=== PATIENT | male | born 1985 | race Caucasian/White ===

== ENCOUNTER 2018-10-19 12:04 | Inpatient (IN) | payer MEDICAID, OTHER ==
[2018-10-19] MEDS ORDERED: Sodium Chloride 0.9% 1,000 ML IV ONE (12:44)
--- NOTE | 2018-10-19 12:49 | ED Physician Chart ---
ED Chief Complaint/HPI - Patient Information Date Seen:: 10/19/18 Time Seen:: 12:30 Chief Complaint:: dizziness, weakness, shortness of breath History of Present Illness:: Patient's had dizziness, weakness, and shortness of breath for 10 days. He's had chills but did not take his temperature. Denies sore throat, cough, vomiting, diarrhea, dysuria. He last had abdominal pain which was periumbilical 2 days ago. No recent change in stool color. Patient went to clinic this morning where anemia was diagnosed. Allergies:: Allergies Allergy/AdvReac Type Severity Reaction Status Date / Time No Known Allergies Allergy Verified 10/19/18 12:18 Vitals:: Vital Signs - 8 hr 10/19/18 12:12 Temp 100.6 F HR 129 RR 18 BP 186/108 O2 Sat % 100 Historian:: Patient Review:: Nurse's Note Reviewed ED Review of Systems - Review of Systems General/Constitutional: Chills, Weakness Skin: No skin lesions Head: No headache Eyes: No loss of vision ENT: No earache, No sore throat Neck: No neck pain Cardio Vascular: No chest pain Pulmonary: SOB GI: No nausea, No vomiting, No diarrhea, Pain G/U: No dysuria, No frequency, No hematuria Musculoskeletal: No bone or joint pain Endocrine: No polyuria Psychiatric: Prior psych history Hematopoietic: No bruising Allergic/Immuno: No urticaria Neurological: No syncope, No focal symptoms ED Past Medical History - Past Medical History Past Medical History: HTN Family History: Diabetes Melitus, HTN Social History: Non Smoker, No Alcohol, No Drug Use Surgical History: None Psychiatricy History: None Medication: None ED Physical Exam - Physical Examination General/Constitutional: Awake, Well-developed, well-nourished, No distress Head: Atraumatic Eyes: PERRL Other Eyes comments:: mild scleral icterus Skin: Nl inspection, No rash ENMT: External ears, nose nl, TM canals nl, Nasal exam nl, Lips, teeth, gums nl , Oropharynx nl, Tonsils nl Neck: No nuchal rigidity Respiratory: Nl effort/Exclusion, Clear to Auscultation, No Wheeze/Rhonchi/Rales Cardio Vascular: RRR, No murmur, gallop, rubs, NL S1 S2 GI: No tenderness/rebounding/guarding, No organomegaly, No hernia, Normal BS's, Nondistended, No mass/bruits Extremities: Normal digits & nails Neuro/Psych: No focal deficits Misc: Normal back ED Labs/Radiology/EKG Results - Lab Results Results: Laboratory Results WBC 3.2 Th/cmm (4.8-10.8) L 10/19/18 12:50 RBC 1.96 Mil/cmm (4.30-5.70) L 10/19/18 12:50 Hgb 7.5 gm/dL (12-16) L* 10/19/18 12:50 Hct 21.1 % (41.0-60) L 10/19/18 12:50 MCV 107.9 fl (80-99) H 10/19/18 12:50 MCH 38.4 pg (26.0-30.0) H 10/19/18 12:50 MCHC Differential 35.6 pg (28.0-36.0) 10/19/18 12:50 RDW 22.4 % (11.5-20.0) H 10/19/18 12:50 Plt Count 100 Th/cmm (150-400) L 10/19/18 12:50 MPV 6.9 fl 10/19/18 12:50 Neutrophils % 75.4 % (40.0-80.0) 10/19/18 12:50 Lymphocytes % 19.7 % (20.0-50.0) L 10/19/18 12:50 Monocytes % 3.7 % (2.0-10.0) 10/19/18 12:50 Eosinophils % 1.1 % (0.0-5.0) 10/19/18 12:50 Basophils % 0.1 % (0.0-2.0) 10/19/18 12:50 Sodium 134 mEq/L (136-145) L 10/19/18 12:50 Potassium 4.1 mEq/L (3.5-5.1) 10/19/18 12:50 Chloride 98 mEq/L (98-107) 10/19/18 12:50 Carbon Dioxide 28.8 mEq/L (21.0-31.0) 10/19/18 12:50 Anion Gap 11.3 (7.0-16.0) 10/19/18 12:50 BUN 12 mg/dL (7-25) 10/19/18 12:50 Creatinine 0.7 mg/dL (0.7-1.3) 10/19/18 12:50 Est GFR ( Amer) > 60.0 ml/min (>90) 10/19/18 12:50 Est GFR (Non-Af Amer) > 60.0 ml/min 10/19/18 12:50 BUN/Creatinine Ratio 17.1 10/19/18 12:50 Glucose 110 mg/dL (70-105) H 10/19/18 12:50 Whole Bld Lactic Acid 1.90 mmol/L (0.60-1.99) 10/19/18 12:50 Calcium 9.4 mg/dL (8.6-10.3) 10/19/18 12:50 Total Bilirubin 2.4 mg/dL (0.3-1.0) H 10/19/18 12:50 AST 79 U/L (13-39) H 10/19/18 12:50 ALT 50 U/L (7-52) 10/19/18 12:50 Alkaline Phosphatase 53 U/L (34-104) 10/19/18 12:50 Total Protein 7.3 gm/dL (6.0-8.3) 10/19/18 12:50 Albumin 4.6 gm/dL (4.2-5.5) 10/19/18 12:50 Globulin 2.7 gm/dL 10/19/18 12:50 Albumin/Globulin Ratio 1.7 (1.0-1.8) 10/19/18 12:50 ED Assessment - Assessment General Assessment: Etiology of the patient's pancytopenia is uncertain. I spoke to who will be the admitting physician. A stool for occult blood and a hepatitis panel will be ordered. ED Septic Shock - . Is Septic Shock (SBP<90, OR Lactate>4 mmol\L) present?: No - <6hrs of presentation: Vital Signs: Vital Signs - 8 hr 10/19/18 12:12 Temp 100.6 F HR 129 RR 18 BP 186/108 O2 Sat % 100 ED Reassessment (Disposition) - Reassessment Reassessment Condition:: Unchanged - Diagnosis Diagnosis:: Pancytopenia - Patient Disposition Admitted to:: Med/Surg Spoke to:: Brie uHrst Admitting Medical Physician:: Brie Hurst Condition at Disposition:: Stable, Unchanged
--- NOTE | 2018-10-19 13:04 | Diagnostic Imaging Report ---
Chest x-ray single view portable upright at 1253 History: Fever weakness Comparison: None The heart size is normal. No focal pulmonary parenchymal processes. No hilar or mediastinal abnormalities. Impression: No acute abnormalities
[2018-10-19 13:20] LABS: MEAN CORPUSCULAR HEMOGLOBIN 38.4 pg (26.0-30.0); MEAN CORPUSCULAR HGB CONC 35.6 pg (28.0-36.0); PLATELET COUNT 100 Th/cmm (150-400); RED BLOOD COUNT 1.96 Mil/cmm (4.30-5.70); RED CELL DISTRIBUTION WIDTH 22.4 % (11.5-20.0)
[2018-10-19 13:32] LABS: ALB/GLOB RATIO 1.7 (1.0-1.8); ALBUMIN 4.6 gm/dL (4.2-5.5); ALKALINE PHOSPHATASE 53 U/L (34-104); ANION GAP 11.3 (7.0-16.0); BILIRUBIN,TOTAL 2.4 mg/dL (0.3-1.0); BUN - UREA NITROGEN 12 mg/dL (7-25); CALCIUM SERUM 9.4 mg/dL (8.6-10.3); CARBON DIOXIDE 28.8 mEq/L (21.0-31.0); CHLORIDE 98 mEq/L (98-107); CREATININE - SERUM 0.7 mg/dL (0.7-1.3); GFR AFRICAN-AMERICAN > 60.0 ml/min (>90); GFR NON AFRICAN-AMERICAN > 60.0 ml/min; GLUCOSE 110 mg/dL (70-105); POTASSIUM SERUM 4.1 mEq/L (3.5-5.1); SGOT 79 U/L (13-39); SGPT/ALT 50 U/L (7-52); SODIUM SERUM 134 mEq/L (136-145); TOTAL PROTEIN,SERUM 7.3 gm/dL (6.0-8.3)
[2018-10-19 13:37] LABS: HEMATOCRIT 21.1 % (41.0-60); HEMOGLOBIN 7.5 gm/dL (12-16); MEAN CELL VOLUME 107.9 fl (80-99); WHITE BLOOD COUNT 3.2 Th/cmm (4.8-10.8)
[2018-10-19 13:56] LABS: INR 1.02 (0.5-1.4)
[2018-10-19 14:09] LABS: LYMPHOCYTE 18 % (20-50); MONOCYTE 4 % (2-10); NEUTROPHILS 78 % (40-80)
[2018-10-19 14:10] LABS: ANISOCYTOSIS 2+; PLATELET ESTIMATE DECREASED PLATELETS (NORMAL); POIKILOCYTOSIS 1+; POLYCHROMASIA 1+
[2018-10-19 15:35] LABS: URINE SOURCE MIDSTREAM
[2018-10-19 15:38] LABS: URINE BILIRUBIN SMALL (NEGATIVE); URINE BLOOD NEGATIVE (NEGATIVE); URINE GLUCOSE (UA) NEGATIVE (NEGATIVE); URINE KETONE NEGATIVE (NEGATIVE); URINE LEUKOCYTE ESTERASE NEGATIVE (NEGATIVE); URINE MICROSCOPIC INDICATED? YES; URINE NITRATE NEGATIVE (NEGATIVE); URINE PROTEIN TRACE mg/dL (NEGATIVE)
[2018-10-19 15:48] LABS: URINE CLARITY HAZY (CLEAR); URINE COLOR YELLOW; URINE RBC 0-2 /hpf (0-5); URINE WBC 0-2 /hpf (0-5)
[2018-10-19 15:49] LABS: URINE BACTERIA FEW /hpf (NONE SEEN); URINE EPITHELIAL CELLS NONE SEEN /lpf (FEW)
[2018-10-19] MEDS ORDERED: D5-0.45NS w/20 mEq KCL 1,000 ML IV ONE (15:57)
[2018-10-19 16:26] VITALS: BP 141/85
[2018-10-19] MEDS: D5-0.45NS w/20 mEq KCL 1,000 ML IV SCH (17:03)
--- NOTE | 2018-10-19 21:18 | History & Physical ---
ADMIT DATE: 10/19/2018 CHIEF COMPLAINT: Generalized weakness for a few days' duration. HISTORY OF PRESENT ILLNESS: The patient is a 33-year-old male with long history of hypertension, presented to the Emergency Room with generalized weakness for a few days' duration, evaluated by the ER physician. Initial workup significant for pancytopenia. The patient denies any nausea, any vomiting, upper or lower GI bleeding. No dysuria or hematuria. No fever, no chills. The patient admitted to the hospital, started on IV fluids, 2 units of blood ordered to be transfused. Dr. Glass, Hematology consulted on the case. PAST MEDICAL HISTORY: Significant for hypertension. PAST SURGICAL HISTORY: No recent surgery. ALLERGIES: None. MEDICATIONS: None. SOCIAL HISTORY: No smoking, no alcohol, no drug. FAMILY HISTORY: Noncontributory. REVIEW OF SYSTEMS: IMMUNO SYSTEM: No history of chronic immuno disorder. CARDIOVASCULAR SYSTEM: He has a history of hypertension. ENDOCRINE SYSTEM: No diabetes or thyroid problem. GASTROINTESTINAL SYSTEM: No upper or lower gastrointestinal bleed. NEUROLOGICAL SYSTEM: No seizure disorder. MUSCULOSKELETAL SYSTEM: No muscular dystrophy. HEMATOLOGIC SYSTEM: No bleeding tendency. RESPIRATORY SYSTEM: No asthma. GENITOURINARY: No dysuria or hematuria. PHYSICAL EXAMINATION: GENERAL: He is awake, alert, oriented, not in pain or distress. VITAL SIGNS: Temperature is 97.7, heart rate 110, blood pressure 141/85. HEENT: Normocephalic. Pupils reactive to light and accommodation. Sclerae clear. NECK: Supple. Negative for lymphadenopathy, JVD or bruit. CHEST: Air bilaterally normal. No rhonchi or wheezing. HEART: S1, S2 normal. No murmur or gallop rhythm. ABDOMEN: Soft, bowel sounds positive. EXTREMITIES: No edema. NEUROLOGIC: He is awake, alert, oriented. No focal muscle deficits. Cranial nerves 2-12 are intact. LABORATORY DATA: White blood 3.2, hemoglobin 7.5, hematocrit 21.1, platelets 100,000. Sodium 134, potassium 4.1, BUN 12, creatinine 0.7, glucose 110. ASSESSMENT: 1. Pancytopenia. 2. Hypertension. PLAN: The patient admitted to the hospital under Dr. Hurst's service. IV fluid, regular diet, Norvasc [address] Glass consulted on the case. CBC, CMP for tomorrow. Iron deficiency panel in a.m. The patient is a full code. JOB# [id number]
[2018-10-20 05:41] LABS: MEAN CORPUSCULAR HEMOGLOBIN 37.1 pg (26.0-30.0); MEAN CORPUSCULAR HGB CONC 34.8 pg (28.0-36.0); PLATELET COUNT 90 Th/cmm (150-400); RED BLOOD COUNT 1.82 Mil/cmm (4.30-5.70); RED CELL DISTRIBUTION WIDTH 24.4 % (11.5-20.0)
[2018-10-20 05:46] LABS: WHITE BLOOD COUNT 2.8 Th/cmm (4.8-10.8)
[2018-10-20 05:47] LABS: HEMATOCRIT 19.4 % (41.0-60); HEMOGLOBIN 6.8 gm/dL (12-16); MEAN CELL VOLUME 106.7 fl (80-99)
[2018-10-20 08:06] LABS: HEP A AB IGM Negative (Negative); HEP B CORE IGM Negative (Negative); HEP B SURFACE AG QL Negative (Negative); HEP C ANTIBODY 0.3 s/co ratio (0.0-0.9)
[2018-10-20] MEDS: D5-0.45NS w/20 mEq KCL 1,000 ML IV SCH (08:40)
[2018-10-20 09:57] LABS: BAND NEUTROPHILE 0 % (0-10); LYMPHOCYTE 17 % (20-50); MONOCYTE 3 % (2-10); NEUTROPHILS 80 % (40-80)
[2018-10-20 09:58] LABS: ANISOCYTOSIS 1+; BASOPHIL 0 % (0-3); EOSINOPHIL 0 % (0-5); PLATELET ESTIMATE DECREASED PLATELETS (NORMAL)
--- NOTE | 2018-10-20 14:09 | Internal Medicine Prog Note ---
Internal Medicine Subjective - Subjective Service Date: 10/20/18 Patient seen and examined:: with staff Patient is:: awake, verbal, in bed, talking Per staff patient has:: no adverse event, eating well, tolerating meds Internal Medicine Objective - Results Result Diagrams: 10/20/18 05:30 10/19/18 12:50 Recent Labs: Laboratory Last Values WBC 2.8 Th/cmm (4.8-10.8) L 10/20/18 05:30 RBC 1.82 Mil/cmm (4.30-5.70) L 10/20/18 05:30 Hgb 6.8 gm/dL (12-16) L* 10/20/18 05:30 Hct 19.4 % (41.0-60) L* 10/20/18 05:30 MCV 106.7 fl (80-99) H 10/20/18 05:30 MCH 37.1 pg (26.0-30.0) H 10/20/18 05:30 MCHC Differential 34.8 pg (28.0-36.0) 10/20/18 05:30 RDW 24.4 % (11.5-20.0) H 10/20/18 05:30 Plt Count 90 Th/cmm (150-400) L 10/20/18 05:30 MPV 5.8 fl 10/20/18 05:30 Add Manual Diff YES 10/20/18 05:30 Neutrophils % ENDLESS BELT FINISHER 10/19/18 12:50 Band Neutrophils % 0 % (0-10) 10/20/18 05:30 Lymphocytes % ENDLESS BELT FINISHER 10/19/18 12:50 Monocytes % ENDLESS BELT FINISHER 10/19/18 12:50 Eosinophils % ENDLESS BELT FINISHER 10/19/18 12:50 Basophils % ENDLESS BELT FINISHER 10/19/18 12:50 Neutrophils (Manual) 80 % (40-80) 10/20/18 05:30 Lymphocytes 17 % (20-50) L 10/20/18 05:30 Monocytes 3 % (2-10) 10/20/18 05:30 Eosinophils 0 % (0-5) 10/20/18 05:30 Basophils 0 % (0-3) 10/20/18 05:30 Platelet Estimate DECREASED PLATELETS (NORMAL) 10/20/18 05:30 Polychromasia 1+ 10/19/18 12:50 Poikilocytosis 1+ 10/19/18 12:50 Anisocytosis 1+ 10/20/18 05:30 Microcytosis 1+ 10/19/18 12:50 Macrocytosis 1+ 10/20/18 05:30 RBC Morph Micro Appear ABNORMAL (NORMAL) 10/19/18 12:50 PT 10.6 SECONDS (9.5-11.5) 10/19/18 12:50 INR 1.02 (0.5-1.4) 10/19/18 12:50 Sodium 134 mEq/L (136-145) L 10/19/18 12:50 Potassium 4.1 mEq/L (3.5-5.1) 10/19/18 12:50 Chloride 98 mEq/L (98-107) 10/19/18 12:50 Carbon Dioxide 28.8 mEq/L (21.0-31.0) 10/19/18 12:50 Anion Gap 11.3 (7.0-16.0) 10/19/18 12:50 BUN 12 mg/dL (7-25) 10/19/18 12:50 Creatinine 0.7 mg/dL (0.7-1.3) 10/19/18 12:50 Est GFR ( Amer) > 60.0 ml/min (>90) 10/19/18 12:50 Est GFR (Non-Af Amer) > 60.0 ml/min 10/19/18 12:50 BUN/Creatinine Ratio 17.1 10/19/18 12:50 Glucose 110 mg/dL (70-105) H 10/19/18 12:50 POC Glucose 106 MG/DL (70 - 105) H 10/19/18 16:15 Whole Bld Lactic Acid 1.90 mmol/L (0.60-1.99) 10/19/18 12:50 Calcium 9.4 mg/dL (8.6-10.3) 10/19/18 12:50 Total Bilirubin 2.4 mg/dL (0.3-1.0) H 10/19/18 12:50 AST 79 U/L (13-39) H 10/19/18 12:50 ALT 50 U/L (7-52) 10/19/18 12:50 Alkaline Phosphatase 53 U/L (34-104) 10/19/18 12:50 Total Protein 7.3 gm/dL (6.0-8.3) 10/19/18 12:50 Albumin 4.6 gm/dL (4.2-5.5) 10/19/18 12:50 Globulin 2.7 gm/dL 10/19/18 12:50 Albumin/Globulin Ratio 1.7 (1.0-1.8) 10/19/18 12:50 Urine Source MIDSTREAM 10/19/18 12:25 Urine Color YELLOW 10/19/18 12:25 Urine Clarity HAZY (CLEAR) 10/19/18 12:25 Urine pH 7.0 (4.6 - 8.0) 10/19/18 12:25 Ur Specific [place] <= 1.005 (1.005-1.030) 10/19/18 12:25 Urine Protein TRACE mg/dL (NEGATIVE) 10/19/18 12:25 Urine Glucose (UA) NEGATIVE mg/dL (NEGATIVE) 10/19/18 12:25 Urine Ketones NEGATIVE mg/dL (NEGATIVE) 10/19/18 12:25 Urine Blood NEGATIVE (NEGATIVE) 10/19/18 12:25 Urine Nitrate NEGATIVE (NEGATIVE) 10/19/18 12:25 Urine Bilirubin SMALL (NEGATIVE) H 10/19/18 12:25 Urine Urobilinogen 4.0 E.U./dL (0.2 - 1.0) H 10/19/18 12:25 Ur Leukocyte Esterase NEGATIVE (NEGATIVE) 10/19/18 12:25 Urine RBC 0-2 /hpf (0-5) H 10/19/18 12:25 Urine WBC 0-2 /hpf (0-5) 10/19/18 12:25 Ur Epithelial Cells NONE SEEN /lpf (FEW) 10/19/18 12:25 Urine Bacteria FEW /hpf (NONE SEEN) 10/19/18 12:25 Hepatitis A IgM Ab Negative (Negative) 10/19/18 12:50 Hep Bs Antigen Negative (Negative) 10/19/18 12:50 Hep B Core IgM Ab Negative (Negative) 10/19/18 12:50 Hepatitis C Antibody 0.3 s/co ratio (0.0-0.9) 10/19/18 12:50 Blood Type O POSITIVE 10/19/18 15:20 Antibody Screen NEGATIVE 10/19/18 15:20 Crossmatch See Detail 10/19/18 15:20 - Physical Exam Vitals and I&O: Vital Signs Temp 98.1 F 10/20/18 12:00 Pulse 86 10/20/18 12:00 Resp 18 10/20/18 12:00 BP 145/80 10/20/18 12:00 Pulse Ox 98 10/20/18 12:00 Intake & Output 10/19/18 10/20/18 10/20/18 18:59 06:59 18:59 Intake Total 1000 1500 Balance 1000 1500 Weight (lbs) 133.356 kg 133.356 kg Intake: Intake, IV Amount 1000 1000 D5-0.45NS w/20 mEq KCL 1, 1000 000 ml @ 125 mls/hr IV . Q8H [facility] Rx#:[id number] Oral 500 Other: # Voids 2 Weight Source Patient stated Bedscale Active Medications: Current Medications Acetaminophen (Tylenol) 650 mg PO Q4H PRN PRN Reason: Fever > 101 Stop: 12/18/18 17:45 Last Admin: 10/20/18 04:07 Dose: 650 mg Amlodipine Besylate (Norvasc) 10 mg PO DAILY [facility] Stop: 12/19/18 08:59 Last Admin: 10/20/18 08:39 Dose: 10 mg Potassium Chloride/Dextrose/Sod Cl (D5-0.45ns W/20 Meq Kcl) 1,000 mls @ 125 mls /hr IV .Q8H [facility] Stop: 12/18/18 16:23 Last Admin: 10/20/18 08:40 Dose: 125 mls/hr Ciprofloxacin (Cipro 200mg Premix Pb) 200 mg in 100 mls @ 100 mls/hr IV Q12H [facility] Stop: 12/19/18 10:29 Ondansetron HCl (Zofran) 4 mg IV Q6H PRN PRN Reason: Nausea / Vomiting Stop: 12/18/18 16:23 General: alert, obese HEENT: NC/AT, PERRLA, EOMI, anicteric sclerae, throat clear Neck: Supple, No JVD, No thyromegaly, +2 carotid pulse wo bruit, No LAD Lungs: CTAB Cardiovascular: Normal S1, Normal S2, without murmur Abdomen: soft, non-tender, non-distended Extremities: clear Neurological: no change Internal Medicine Assmt/Plan - Assessment Assessment: 1.pancytopenia. 2.htn. 3.lowgrade fever. - Plan Plan: continue on current medication and diet.the patient was seen by .DICK..
--- NOTE | 2018-10-20 16:36 | Consultation ---
DATE OF CONSULTATION: 10/20/2018 REFERRING PHYSICIAN: Brie Hurst MD REASON FOR CONSULTATION: Pancytopenia. HISTORY OF PRESENT ILLNESS: The patient is a 33-year-old male who presented to the hospital with weakness, fever and chills. He was found to have low white count, hemoglobin, and platelet count. White count on admission 3.2, hemoglobin 7.5 and platelets 100 with MCV of 107, mostly neutrophils. Bilirubin elevated at 2.4 and AST elevated with normal renal functions and coagulation profile unremarkable. Urinalysis was transfused packed cells and I was asked to evaluate. PAST MEDICAL HISTORY: Hypertension and obesity. CURRENT MEDICATIONS: Ceftriaxone, Cipro, and amlodipine. PHYSICAL EXAMINATION: GENERAL: He is awake, acutely ill looking. VITAL SIGNS: T-max 100.3, blood pressure 133/80, saturation 98% on room air. No peripheral lymphadenopathy. CHEST: Clear. ABDOMEN: Soft. SKIN: Cold and clammy. LABORATORY DATA: CBC as mentioned above. CT scan of the abdomen and pelvis preliminary report a distended gallbladder. ASSESSMENT: The constellation of pancytopenia and fever and chills and distended gallbladder, abnormal elevated bilirubin, and AST are suggestive of an infectious process and bone marrow suppression. I will obtain procalcitonin, erythrocyte sedimentation rate, B12 and folate level. A HIDA scan is in progress. It confirmed the acute cholecystitis. The patient will need surgical evaluation. The elevated MCV, etiology is unclear. I will check B12 and folate level, LDH, and indirect bilirubin in case there is a hemolysis. Thank you, Dr. Husrt for the opportunity to participate in the care of this interesting case. JOB# [id number]
[2018-10-20 16:49] LABS: BILIRUBIN,DIRECT 0.57 mg/dL (0.0-0.2)
[2018-10-20] MEDS: Ciprofloxacin 200mg Premix PB 200 MG/100 ML BAG IV SCH (16:54)
[2018-10-21] MEDS: Ciprofloxacin 200mg Premix PB 200 MG/100 ML BAG IV SCH ×3 (00:30→21:48)
--- NOTE | 2018-10-21 02:47 | Consultation ---
DATE OF CONSULTATION: 10/20/2018 INFECTIOUS DISEASE CONSULTATION REFERRING PHYSICIAN: Dr. Hurst. REASON FOR CONSULTATION: Pancytopenia, fever. HISTORY OF PRESENT ILLNESS: The patient is a 33-year-old male with no significant past medical history developed intermittent fever for last 2 days. It was associated with generalized weakness and shortness of breath. On initial evaluation, his temperature was 100.6 degrees Fahrenheit and WBC count was 3200, hemoglobin was 7.5, platelets were 100,000. Basically, the patient has pancytopenia. Repeat CBC showed hemoglobin 6.8 and hematocrit 19.4 with WBC count 2800 and platelets were 90,000. As the patient had a fever, ID consult was called for further antibiotic management. The patient received 2 units of blood transfusion. ID consult was called as he had low-grade fever. The patient is obese. BMI 44.7. ALLERGIES: NKDA. MEDICATIONS: As per medication reconciliation list. The patient was started on ciprofloxacin. PAST MEDICAL HISTORY: Includes hypertension. FAMILY HISTORY: Includes diabetes mellitus type 2 and hypertension. SOCIAL HISTORY: The patient denies any smoking, alcohol or drug use. PAST SURGICAL HISTORY: Unknown. PSYCHIATRIC HISTORY: None. TRAVEL HISTORY: None. REVIEW OF SYSTEMS: GENERAL: The patient has low-grade fever and chills intermittently for last 2 days. It was associated with generalized weakness. No deficits. SKIN: The patient has no skin lesion. HEENT: No diplopia, no photophobia, no sore throat. RESPIRATORY: No cough, no shortness of breath. CARDIOVASCULAR: No chest pain, no palpitation. GASTROINTESTINAL: No nausea, no vomiting, no diarrhea, no constipation. GENITOURINARY: No dysuria. NEUROLOGIC: No headache, no dizziness, no focal weakness. PHYSICAL EXAMINATION: VITAL SIGNS: Current vital signs shows temperature is 98.1 degrees Fahrenheit, T-max 100.3 degrees Fahrenheit, pulse 86, respirations 18, blood pressure 145/60. GENERAL: The patient is comfortable, lying in bed, obese. HEENT: Head is normocephalic, atraumatic. Eyes: Pallor is present, no icterus. PERRLA, EOMI. Oral cavity moist, pink tongue. No thrush. CHEST: Vesicular breath sounds. No crackles or wheezing. HEART: S1, S2 within normal limits. Regular rhythm. No murmur or gallop. ABDOMEN: Soft, nontender, nondistended. Bowel sounds present. EXTREMITIES: No cyanosis, no clubbing, no edema. NEUROLOGICAL: Alert, awake, oriented x 3. No focal neurologic deficits. LABORATORY DATA: Current lab shows WBC count is 2800, hemoglobin 6.8, hematocrit 19.4, platelets are 90,000, neutrophils 80%. INR 1.02. Sodium 134, potassium 4.1, chloride 98, bicarbonate is 28.8, BUN is 12, creatinine 0.7, glucose is 110. LFTs revealed bilirubin is 2.4 and AST was 79. Urinalysis showed rbcs 0-1, no epithelial cells, bacteria few. Hepatitis A, B, C panel is negative. Chest x-ray showed no acute abnormality. IMPRESSION: 1. Pancytopenia. 2. Fever. 3. Hypertension. 4. Obesity and may have sleep apnea. RECOMMENDATIONS: We will continue Cipro. Check LDH. Check anticoagulant panel. We will do an EBV titer, HIV titer and follow the blood cultures. Check HIV screen. Hematology/Oncology consultation was called. Dorian Jose. Thank you, Dr. Hurst for involving me in taking care of this patient. JOB# [id number]
[2018-10-21 06:23] LABS: HEMATOCRIT 24.1 % (41.0-60); HEMOGLOBIN 8.3 gm/dL (12-16); LYMPHOCYTE ABSOLUTE 0.6 Th/cmm (1.5-3.0); MEAN CELL VOLUME 101.1 fl (80-99); MEAN CORPUSCULAR HEMOGLOBIN 34.7 pg (26.0-30.0); MEAN CORPUSCULAR HGB CONC 34.4 pg (28.0-36.0); MONOCYTE ABSOLUTE 0.1 Th/cmm (0.3-1.0); NEUTROPHILE ABSOLUTE 1.7 Th/cmm (1.8-8.0); PLATELET COUNT 85 Th/cmm (150-400); RED BLOOD COUNT 2.38 Mil/cmm (4.30-5.70); RED CELL DISTRIBUTION WIDTH 22.7 % (11.5-20.0)
[2018-10-21 06:37] LABS: ALB/GLOB RATIO 1.7 (1.0-1.8); ALBUMIN 4.2 gm/dL (4.2-5.5); ALKALINE PHOSPHATASE 41 U/L (34-104); ANION GAP 9.8 (7.0-16.0); BILIRUBIN,TOTAL 1.4 mg/dL (0.3-1.0); BUN - UREA NITROGEN 11 mg/dL (7-25); CALCIUM SERUM 8.7 mg/dL (8.6-10.3); CARBON DIOXIDE 27.2 mEq/L (21.0-31.0); CHLORIDE 101 mEq/L (98-107); CREATININE - SERUM 0.7 mg/dL (0.7-1.3); GFR AFRICAN-AMERICAN > 60.0 ml/min (>90); GFR NON AFRICAN-AMERICAN > 60.0 ml/min; GLUCOSE 115 mg/dL (70-105); SGOT 56 U/L (13-39); SGPT/ALT 37 U/L (7-52); SODIUM SERUM 134 mEq/L (136-145); TOTAL PROTEIN,SERUM 6.7 gm/dL (6.0-8.3)
[2018-10-21 06:56] LABS: WHITE BLOOD COUNT 2.4 Th/cmm (4.8-10.8)
[2018-10-21 07:32] LABS: ANISOCYTOSIS 2+; BAND NEUTROPHILE 1 % (0-10); LYMPHOCYTE 34 % (20-50); MONOCYTE 5 % (2-10); NEUTROPHILS 60 % (40-80); PLATELET ESTIMATE DECREASED PLATELETS (NORMAL); POIKILOCYTOSIS 1+; POLYCHROMASIA 1+; TEAR DROP CELLS 1+
[2018-10-21 08:08] LABS: IRON LC 117 ug/dL (38-169); TIBC (LC) 211 ug/dL (250-450); UIBC 94 ug/dL (111-343)
--- NOTE | 2018-10-21 09:30 | Diagnostic Imaging Report ---
Exam: HIDA scan HISTORY: Distended gallbladder Findings: Utilizing 5.4 mCi of technetium 99 M Choletec examination of liver and biliary G was performed. The study demonstrates normal uptake over the right midcervical throughout the liver parenchyma with normal excretion of right midcervical and common bile duct at 20 minutes. Normal progression of radiopharmaceutical into small bowel is noted. 2 hour delayed examination failed to demonstrate gallbladder. IMPRESSION: obstruction of the cystic duct, nonvisualized gallbladder. Clinical correlation is recommended.
--- NOTE | 2018-10-21 09:32 | Diagnostic Imaging Report ---
Exam: CT examination of the abdomen pelvis. HISTORY: Pain. Total DLP equals 1039 CTDI equals 18.5 Findings: Multiple contiguous thin section of the abdomen pelvis obtained from lower thorax to the pubic symphysis without the administration of oral or intravenous contrast material, no prior studies available comparison. The study demonstrates normal aeration of lung parenchyma the bases The liver and spleen intact. The adrenal glands are normal. The kidneys demonstrate no evidence of obstructive uropathy or nephrolithiasis. The visualized pancreas is normal. The gallbladder is distended. No free fluid is noted. There is no evidence of diverticular disease of diverticulitis. The appendix is intact. Large amount of fecal content is noted in the rectum. Bony structures demonstrate no evidence for lytic or blastic changes. IMPRESSION: Distended gallbladder Large amount of fecal content in the rectum. Normal appendix. No evidence of diverticulitis.
[2018-10-21] MEDS: D5-0.45NS w/20 mEq KCL 1,000 ML IV SCH ×2 (09:34→20:05)
--- NOTE | 2018-10-21 11:20 | General Progress Note ---
Subjective - Review of Systems Service Date: 10/21/18 Subjective: awake and alert no distress denies abdominal pain, fever, chills or nausea has been tolerating regular diet Objective - Results Result Diagrams: 10/21/18 05:45 10/21/18 05:45 Recent Labs: Laboratory Last Values WBC 2.4 Th/cmm (4.8-10.8) L* 10/21/18 05:45 RBC 2.38 Mil/cmm (4.30-5.70) L 10/21/18 05:45 Hgb 8.3 gm/dL (12-16) L 10/21/18 05:45 Hct 24.1 % (41.0-60) L 10/21/18 05:45 MCV 101.1 fl (80-99) H 10/21/18 05:45 MCH 34.7 pg (26.0-30.0) H 10/21/18 05:45 MCHC Differential 34.4 pg (28.0-36.0) 10/21/18 05:45 RDW 22.7 % (11.5-20.0) H 10/21/18 05:45 Plt Count 85 Th/cmm (150-400) L 10/21/18 05:45 MPV 6.8 fl 10/21/18 05:45 Add Manual Diff YES 10/21/18 05:45 Neutrophils % [employer] 10/19/18 12:50 Band Neutrophils % 1 % (0-10) 10/21/18 05:45 Lymphocytes % [employer] 10/19/18 12:50 Monocytes % [employer] 10/19/18 12:50 Eosinophils % [employer] 10/19/18 12:50 Basophils % [employer] 10/19/18 12:50 Neutrophils (Manual) 60 % (40-80) 10/21/18 05:45 Lymphocytes 34 % (20-50) 10/21/18 05:45 Monocytes 5 % (2-10) 10/21/18 05:45 Eosinophils 0 % (0-5) 10/20/18 05:30 Basophils 0 % (0-3) 10/20/18 05:30 Platelet Estimate DECREASED PLATELETS (NORMAL) 10/21/18 05:45 Polychromasia 1+ 10/21/18 05:45 Poikilocytosis 1+ 10/21/18 05:45 Anisocytosis 2+ 10/21/18 05:45 Microcytosis 1+ 10/19/18 12:50 Macrocytosis 1+ 10/21/18 05:45 Tear Drop Cells 1+ 10/21/18 05:45 RBC Morph Micro Appear ABNORMAL (NORMAL) 10/21/18 05:45 ESR 127 mm/hr (0-20) H 10/20/18 06:00 PT 10.6 SECONDS (9.5-11.5) 10/19/18 12:50 INR 1.02 (0.5-1.4) 10/19/18 12:50 Sodium 134 mEq/L (136-145) L 10/21/18 05:45 Potassium 4.0 mEq/L (3.5-5.1) 10/21/18 05:45 Chloride 101 mEq/L (98-107) 10/21/18 05:45 Carbon Dioxide 27.2 mEq/L (21.0-31.0) 10/21/18 05:45 Anion Gap 9.8 (7.0-16.0) 10/21/18 05:45 BUN 11 mg/dL (7-25) 10/21/18 05:45 Creatinine 0.7 mg/dL (0.7-1.3) 10/21/18 05:45 Est GFR ( Amer) > 60.0 ml/min (>90) 10/21/18 05:45 Est GFR (Non-Af Amer) > 60.0 ml/min 10/21/18 05:45 BUN/Creatinine Ratio 15.7 10/21/18 05:45 Glucose 115 mg/dL (70-105) H 10/21/18 05:45 POC Glucose 106 MG/DL (70 - 105) H 10/19/18 16:15 Whole Bld Lactic Acid 1.90 mmol/L (0.60-1.99) 10/19/18 12:50 Calcium 8.7 mg/dL (8.6-10.3) 10/21/18 05:45 Iron 117 ug/dL (38-169) 10/20/18 05:30 TIBC 211 ug/dL (250-450) L 10/20/18 05:30 Iron Saturation 55 % (15-55) 10/20/18 05:30 Unsaturated IBC 94 ug/dL (111-343) L 10/20/18 05:30 Total Bilirubin 1.4 mg/dL (0.3-1.0) H 10/21/18 05:45 Direct Bilirubin 0.57 mg/dL (0.0-0.2) H 10/20/18 06:00 AST 56 U/L (13-39) H 10/21/18 05:45 ALT 37 U/L (7-52) 10/21/18 05:45 Alkaline Phosphatase 41 U/L (34-104) 10/21/18 05:45 Total Protein 6.7 gm/dL (6.0-8.3) 10/21/18 05:45 Albumin 4.2 gm/dL (4.2-5.5) 10/21/18 05:45 Globulin 2.5 gm/dL 10/21/18 05:45 Albumin/Globulin Ratio 1.7 (1.0-1.8) 10/21/18 05:45 Urine Source MIDSTREAM 10/19/18 12:25 Urine Color YELLOW 10/19/18 12:25 Urine Clarity HAZY (CLEAR) 10/19/18 12:25 Urine pH 7.0 (4.6 - 8.0) 10/19/18 12:25 Ur Specific [place] <= 1.005 (1.005-1.030) 10/19/18 12:25 Urine Protein TRACE mg/dL (NEGATIVE) 10/19/18 12:25 Urine Glucose (UA) NEGATIVE mg/dL (NEGATIVE) 10/19/18 12:25 Urine Ketones NEGATIVE mg/dL (NEGATIVE) 10/19/18 12:25 Urine Blood NEGATIVE (NEGATIVE) 10/19/18 12:25 Urine Nitrate NEGATIVE (NEGATIVE) 10/19/18 12:25 Urine Bilirubin SMALL (NEGATIVE) H 10/19/18 12:25 Urine Urobilinogen 4.0 E.U./dL (0.2 - 1.0) H 10/19/18 12:25 Ur Leukocyte Esterase NEGATIVE (NEGATIVE) 10/19/18 12:25 Urine RBC 0-2 /hpf (0-5) H 10/19/18 12:25 Urine WBC 0-2 /hpf (0-5) 10/19/18 12:25 Ur Epithelial Cells NONE SEEN /lpf (FEW) 10/19/18 12:25 Urine Bacteria FEW /hpf (NONE SEEN) 10/19/18 12:25 Stool Occult Blood NEGATIVE (NEGATIVE) 10/21/18 06:50 Hepatitis A IgM Ab Negative (Negative) 10/19/18 12:50 Hep Bs Antigen Negative (Negative) 10/19/18 12:50 Hep B Core IgM Ab Negative (Negative) 10/19/18 12:50 Hepatitis C Antibody 0.3 s/co ratio (0.0-0.9) 10/19/18 12:50 Blood Type O POSITIVE 10/19/18 15:20 Antibody Screen NEGATIVE 10/19/18 15:20 Crossmatch See Detail 10/19/18 15:20 - Physical Exam Vitals and I&O: Vital Signs Temp 99.2 F 10/21/18 08:00 Pulse 103 10/21/18 08:15 Resp 20 10/21/18 08:00 BP 137/68 10/21/18 08:15 Pulse Ox 100 10/21/18 08:00 Intake & Output 10/20/18 10/21/18 10/21/18 18:59 06:59 18:59 Intake Total 1580 1000 Balance 1580 1000 Weight (lbs) 133.356 kg 133.356 kg Intake: Intake, IV Amount 1100 100 Ciprofloxacin 200mg 100 100 Premix PB 200 mg In 100 ml @ 100 mls/hr IV Q12H [facility] Rx#:[id number] D5-0.45NS w/20 mEq KCL 1, 1000 000 ml @ 125 mls/hr IV . Q8H [facility] Rx#:[id number] Oral 480 650 Blood Product 250 Other: # Voids 4 3 # Bowel Movements 0 0 Stool Characteristics Soft Formed Green Weight Source Bedscale Bedscale Active Medications: Current Medications Acetaminophen (Tylenol) 650 mg PO Q4H PRN PRN Reason: Fever > 101 Stop: 12/18/18 17:45 Last Admin: 10/20/18 15:36 Dose: 650 mg Amlodipine Besylate (Norvasc) 10 mg PO DAILY [facility] Stop: 12/19/18 08:59 Last Admin: 10/21/18 08:15 Dose: 10 mg Potassium Chloride/Dextrose/Sod Cl (D5-0.45ns W/20 Meq Kcl) 1,000 mls @ 125 mls /hr IV .Q8H [facility] Stop: 12/18/18 16:23 Last Admin: 10/21/18 09:34 Dose: 125 mls/hr Ciprofloxacin (Cipro 200mg Premix Pb) 200 mg in 100 mls @ 100 mls/hr IV Q12H [facility] Stop: 12/19/18 10:29 Last Admin: 10/21/18 09:34 Dose: 100 mls/hr Ceftriaxone Sodium 1 gm/ (Dextrose) 50 mls @ 100 mls/hr IV Q24H [facility] Stop: 12/19/18 14:59 Last Admin: 10/20/18 15:36 Dose: 100 mls/hr Metronidazole (Flagyl) 500 mg in 100 mls @ 100 mls/hr IV Q8HR [facility] Stop: 12/20/18 12:59 Ondansetron HCl (Zofran) 4 mg IV Q6H PRN PRN Reason: Nausea / Vomiting Stop: 12/18/18 16:23 General: Alert, No acute distress HEENT: Atraumatic, PERRLA Neck: Supple, JVD, Thyromegaly Cardiovascular: Regular rate, Normal S1, Normal S2 Lungs: Clear to auscultation Abdomen: Bowel sounds, Soft, Other (non tender, negative Morales's, no rebound) Assessment/Plan - Assessment Assessment: abnormal HIDA, possible cholecystitis pancytopenia obesity - Plan Plan: add flagyl keep NPO, pending surgical eval GI consult Monitor cell counts
--- NOTE | 2018-10-21 13:20 | Consultation ---
Consult Note - Consult Note Service Date: 10/21/18 Referring Physician: Brie Hurst Consult Note: PHYSICIAN Consultation Note: Date of Admission: 10/19/18 Purpose of Consultation: Chief Complaint: History of Present Illness: Patient BRUCE KILGORE was admitted to [facility] with PANCYTOPENIA. Past Medical History: Diagnoses OTHER PANCYTOPENIA (10/19/18) ESSENTIAL (PRIMARY) HYPERTENSION (10/19/18) WEAKNESS (10/19/18) Allergies Allergy/AdvReac Type Severity Reaction Status Date / Time No Known Allergies Allergy Verified 10/19/18 12:18 Vital Signs Temp 98.2 F 10/21/18 12:00 Pulse 99 10/21/18 12:00 Resp 20 10/21/18 12:00 BP 152/83 10/21/18 12:00 Pulse Ox 98 10/21/18 12:00 Intake & Output 10/20/18 10/21/18 10/21/18 18:59 06:59 18:59 Intake Total 1580 1000 Balance 1580 1000 Weight (lbs) 294 lb 294 lb Intake: Intake, IV Amount 1100 100 Ciprofloxacin 200mg 100 100 Premix PB 200 mg In 100 ml @ 100 mls/hr IV Q12H [facility] Rx#:[id number] D5-0.45NS w/20 mEq KCL 1, 1000 000 ml @ 125 mls/hr IV . Q8H [facility] Rx#:[id number] Oral 480 650 Blood Product 250 Other: # Voids 4 3 # Bowel Movements 0 0 Stool Characteristics Soft Formed Green Weight Source Bedscale Bedscale Laboratory Results - last 24 hr 10/19/18 10/20/18 10/20/18 15:20 05:30 06:00 WBC RBC Hgb Hct MCV MCH MCHC Differential RDW Plt Count MPV Add Manual Diff Band Neutrophils % Neutrophils (Manual) Lymphocytes Monocytes Platelet Estimate Polychromasia Poikilocytosis Anisocytosis Macrocytosis Tear Drop Cells RBC Morph Micro Appear ESR 127 H Sodium Potassium Chloride Carbon Dioxide Anion Gap BUN Creatinine Est GFR ( Amer) Est GFR (Non-Af Amer) BUN/Creatinine Ratio Glucose Calcium Iron 117 TIBC 211 L Iron Saturation 55 Unsaturated IBC 94 L Total Bilirubin Direct Bilirubin AST ALT Alkaline Phosphatase Total Protein Albumin Globulin Albumin/Globulin Ratio Stool Occult Blood Blood Type O POSITIVE Antibody Screen NEGATIVE Crossmatch See Detail 10/20/18 10/21/18 10/21/18 06:00 05:45 05:45 WBC 2.4 L* RBC 2.38 L Hgb 8.3 L Hct 24.1 L MCV 101.1 H MCH 34.7 H MCHC Differential 34.4 RDW 22.7 H Plt Count 85 L MPV 6.8 Add Manual Diff YES Band Neutrophils % 1 Neutrophils (Manual) 60 Lymphocytes 34 Monocytes 5 Platelet Estimate DECREASED PLATELETS Polychromasia 1+ Poikilocytosis 1+ Anisocytosis 2+ Macrocytosis 1+ Tear Drop Cells 1+ RBC Morph Micro Appear ABNORMAL ESR Sodium 134 L Potassium 4.0 Chloride 101 Carbon Dioxide 27.2 Anion Gap 9.8 BUN 11 Creatinine 0.7 Est GFR ( Amer) > 60.0 Est GFR (Non-Af Amer) > 60.0 BUN/Creatinine Ratio 15.7 Glucose 115 H Calcium 8.7 Iron TIBC Iron Saturation Unsaturated IBC Total Bilirubin 2.0 H 1.4 H Direct Bilirubin 0.57 H AST 56 H ALT 37 Alkaline Phosphatase 41 Total Protein 6.7 Albumin 4.2 Globulin 2.5 Albumin/Globulin Ratio 1.7 Stool Occult Blood Blood Type Antibody Screen Crossmatch 10/21/18 06:50 WBC RBC Hgb Hct MCV MCH MCHC Differential RDW Plt Count MPV Add Manual Diff Band Neutrophils % Neutrophils (Manual) Lymphocytes Monocytes Platelet Estimate Polychromasia Poikilocytosis Anisocytosis Macrocytosis Tear Drop Cells RBC Morph Micro Appear ESR Sodium Potassium Chloride Carbon Dioxide Anion Gap BUN Creatinine Est GFR ( Amer) Est GFR (Non-Af Amer) BUN/Creatinine Ratio Glucose Calcium Iron TIBC Iron Saturation Unsaturated IBC Total Bilirubin Direct Bilirubin AST ALT Alkaline Phosphatase Total Protein Albumin Globulin Albumin/Globulin Ratio Stool Occult Blood NEGATIVE Blood Type Antibody Screen Crossmatch Home Medication Medication Instructions Recorded Type NK [No Home Meds] 10/19/18 History Current Medications Generic Name Dose Route Start Last Admin Trade Name Freq PRN Reason Stop Dose Admin Acetaminophen 650 mg 10/19/18 17:46 10/20/18 15:36 Tylenol PO 12/18/18 17:45 650 mg Q4H PRN Administration Fever > 101 Amlodipine Besylate 10 mg 10/20/18 09:00 10/21/18 08:15 Norvasc PO 12/19/18 08:59 10 mg DAILY [facility] Administration Potassium Chloride/Dextrose/Sod Cl 1,000 mls @ 125 mls/hr 10/19/18 16:24 09:34 D5-0.45ns W/20 Meq Kcl IV 12/18/18 16:23 125 mls/hr .Q8H [facility] Administration Ciprofloxacin 200 mg in 100 mls @ 100 mls/hr 10/20/18 10:30 10/21/18 09:34 Cipro 200mg Premix Pb IV 12/19/18 10:29 100 mls/hr Q12H [facility] Administration Ceftriaxone Sodium 1 gm/ 50 mls @ 100 mls/hr 10/20/18 15:00 10/20/18 15:36 Dextrose IV 12/19/18 14:59 100 mls/hr Q24H [facility] Administration Metronidazole 500 mg in 100 mls @ 100 mls/hr 10/21/18 13:00 Flagyl IV 12/20/18 12:59 Q8HR [facility] Ondansetron HCl 4 mg 10/19/18 16:24 Zofran IV 12/18/18 16:23 Q6H PRN Nausea / Vomiting Review of Systems: A 12 point ROS was reviewed with the pertinent positive and negatives noted in the HPI. Social History Smoking Status Never smoker Drug Use No Alcohol Use No Family Medical History Family Medical History Start: 10/19/18 15: 44 Freq: ONCE Status: Active Protocol: Document 10/19/18 15:44 LEILA (Rec: 10/19/18 16:53 LEILA [id number]) Family Medical History Father History Unknown Yes Mother History Unknown Yes Physical Exam: General: HEENT: Neck: Cardio: Respiratory: Abdominal: soft mild pain in right upper quadrant Genital/Urinary: Extremities: Neurological: Assessment: symptomativ obstructed gallbladder anemia Plan: Consider surgery only if repeat ultrasound shows gallstones and patient cleared from [facility] [id number]
[2018-10-21] MEDS: metroNIDAZOLE 500mg/NS 100mL 500 MG/100 ML BAG IV SCH ×2 (13:36→20:05)
[2018-10-21 23:04] LABS: FOLIC ACID 9.7 ng/mL (>3.0)
[2018-10-22] MEDS: D5-0.45NS w/20 mEq KCL 1,000 ML IV SCH ×2 (04:16→17:34)
[2018-10-22] MEDS: metroNIDAZOLE 500mg/NS 100mL 500 MG/100 ML BAG IV SCH ×3 (04:16→20:05)
[2018-10-22 06:44] LABS: LYMPHOCYTE ABSOLUTE 0.8 Th/cmm (1.5-3.0); MEAN CELL VOLUME 101.8 fl (80-99); MEAN CORPUSCULAR HEMOGLOBIN 35.6 pg (26.0-30.0); MONOCYTE ABSOLUTE 0.1 Th/cmm (0.3-1.0); NEUTROPHILE ABSOLUTE 1.3 Th/cmm (1.8-8.0); PLATELET COUNT 85 Th/cmm (150-400); RED BLOOD COUNT 2.35 Mil/cmm (4.30-5.70); RED CELL DISTRIBUTION WIDTH 23.2 % (11.5-20.0)
[2018-10-22 06:52] LABS: INR 1.06 (0.5-1.4)
[2018-10-22 06:57] LABS: HEMATOCRIT 23.9 % (41.0-60); WHITE BLOOD COUNT 2.2 Th/cmm (4.8-10.8)
[2018-10-22 06:58] LABS: ALB/GLOB RATIO 1.5 (1.0-1.8); ALKALINE PHOSPHATASE 39 U/L (34-104); ANION GAP 8.4 (7.0-16.0); BILIRUBIN,TOTAL 1.3 mg/dL (0.3-1.0); BUN - UREA NITROGEN 11 mg/dL (7-25); CALCIUM SERUM 8.6 mg/dL (8.6-10.3); CARBON DIOXIDE 28.6 mEq/L (21.0-31.0); CHLORIDE 101 mEq/L (98-107); CREATININE - SERUM 0.7 mg/dL (0.7-1.3); GFR AFRICAN-AMERICAN > 60.0 ml/min (>90); GFR NON AFRICAN-AMERICAN > 60.0 ml/min; GLUCOSE 105 mg/dL (70-105); HEMOGLOBIN 8.4 gm/dL (12-16); SGOT 44 U/L (13-39); SGPT/ALT 33 U/L (7-52); SODIUM SERUM 134 mEq/L (136-145); TOTAL PROTEIN,SERUM 6.6 gm/dL (6.0-8.3)
[2018-10-22 07:24] LABS: NEUTROPHILS 55 % (40-80)
[2018-10-22 07:25] LABS: ANISOCYTOSIS 2+; BAND NEUTROPHILE 1 % (0-10); LYMPHOCYTE 39 % (20-50); MONOCYTE 5 % (2-10); PLATELET ESTIMATE DECREASED PLATELETS (NORMAL); POIKILOCYTOSIS 1+; POLYCHROMASIA 1+; TEAR DROP CELLS 1+
--- NOTE | 2018-10-22 09:33 | GI Progress Note ---
Subjective - Review of Systems Service Date: 10/22/18 Events since last encounter: No events Subjective: No pain. Eating OK GI OBJECTIVE - Results Result Diagrams: 10/22/18 06:20 10/22/18 06:20 Recent Labs: Laboratory Last Values WBC 2.2 Th/cmm (4.8-10.8) L* 10/22/18 06:20 RBC 2.35 Mil/cmm (4.30-5.70) L 10/22/18 06:20 Hgb 8.4 gm/dL (12-16) L 10/22/18 06:20 Hct 23.9 % (41.0-60) L 10/22/18 06:20 MCV 101.8 fl (80-99) H 10/22/18 06:20 MCH 35.6 pg (26.0-30.0) H 10/22/18 06:20 MCHC Differential 35.0 pg (28.0-36.0) 10/22/18 06:20 RDW 23.2 % (11.5-20.0) H 10/22/18 06:20 Plt Count 85 Th/cmm (150-400) L 10/22/18 06:20 MPV 6.3 fl 10/22/18 06:20 Add Manual Diff YES 10/22/18 06:20 Neutrophils % [employer] 10/19/18 12:50 Band Neutrophils % 1 % (0-10) 10/22/18 06:20 Lymphocytes % [employer] 10/19/18 12:50 Monocytes % [employer] 10/19/18 12:50 Eosinophils % [employer] 10/19/18 12:50 Basophils % [employer] 10/19/18 12:50 Neutrophils (Manual) 55 % (40-80) 10/22/18 06:20 Lymphocytes 39 % (20-50) 10/22/18 06:20 Monocytes 5 % (2-10) 10/22/18 06:20 Eosinophils 0 % (0-5) 10/20/18 05:30 Basophils 0 % (0-3) 10/20/18 05:30 Platelet Estimate DECREASED PLATELETS (NORMAL) 10/22/18 06:20 Polychromasia 1+ 10/22/18 06:20 Poikilocytosis 1+ 10/22/18 06:20 Anisocytosis 2+ 10/22/18 06:20 Microcytosis 2+ 10/22/18 06:20 Macrocytosis 1+ 10/21/18 05:45 Tear Drop Cells 1+ 10/22/18 06:20 RBC Morph Micro Appear ABNORMAL (NORMAL) 10/22/18 06:20 ESR 127 mm/hr (0-20) H 10/20/18 06:00 PT 11.0 SECONDS (9.5-11.5) 10/22/18 06:20 INR 1.06 (0.5-1.4) 10/22/18 06:20 PTT (Actin FS) 33.6 SECONDS (26.0-38.0) 10/22/18 06:20 Sodium 134 mEq/L (136-145) L 10/22/18 06:20 Potassium 4.0 mEq/L (3.5-5.1) 10/22/18 06:20 Chloride 101 mEq/L (98-107) 10/22/18 06:20 Carbon Dioxide 28.6 mEq/L (21.0-31.0) 10/22/18 06:20 Anion Gap 8.4 (7.0-16.0) 10/22/18 06:20 BUN 11 mg/dL (7-25) 10/22/18 06:20 Creatinine 0.7 mg/dL (0.7-1.3) 10/22/18 06:20 Est GFR ( Amer) > 60.0 ml/min (>90) 10/22/18 06:20 Est GFR (Non-Af Amer) > 60.0 ml/min 10/22/18 06:20 BUN/Creatinine Ratio 15.7 10/22/18 06:20 Glucose 105 mg/dL (70-105) 10/22/18 06:20 POC Glucose 106 MG/DL (70 - 105) H 10/19/18 16:15 Whole Bld Lactic Acid 1.90 mmol/L (0.60-1.99) 10/19/18 12:50 Calcium 8.6 mg/dL (8.6-10.3) 10/22/18 06:20 Iron 117 ug/dL (38-169) 10/20/18 05:30 TIBC 211 ug/dL (250-450) L 10/20/18 05:30 Iron Saturation 55 % (15-55) 10/20/18 05:30 Unsaturated IBC 94 ug/dL (111-343) L 10/20/18 05:30 Total Bilirubin 1.3 mg/dL (0.3-1.0) H 10/22/18 06:20 Direct Bilirubin 0.57 mg/dL (0.0-0.2) H 10/20/18 06:00 AST 44 U/L (13-39) H 10/22/18 06:20 ALT 33 U/L (7-52) 10/22/18 06:20 Alkaline Phosphatase 39 U/L (34-104) 10/22/18 06:20 Total Protein 6.6 gm/dL (6.0-8.3) 10/22/18 06:20 Albumin 4.0 gm/dL (4.2-5.5) L 10/22/18 06:20 Globulin 2.6 gm/dL 10/22/18 06:20 Albumin/Globulin Ratio 1.5 (1.0-1.8) 10/22/18 06:20 Vitamin B12 150 pg/mL (232-1245) L 10/20/18 06:00 Folic Acid 9.7 ng/mL (>3.0) 10/20/18 06:00 Urine Source MIDSTREAM 10/19/18 12:25 Urine Color YELLOW 10/19/18 12:25 Urine Clarity HAZY (CLEAR) 10/19/18 12:25 Urine pH 7.0 (4.6 - 8.0) 10/19/18 12:25 Ur Specific [place] <= 1.005 (1.005-1.030) 10/19/18 12:25 Urine Protein TRACE mg/dL (NEGATIVE) 10/19/18 12:25 Urine Glucose (UA) NEGATIVE mg/dL (NEGATIVE) 10/19/18 12:25 Urine Ketones NEGATIVE mg/dL (NEGATIVE) 10/19/18 12:25 Urine Blood NEGATIVE (NEGATIVE) 10/19/18 12:25 Urine Nitrate NEGATIVE (NEGATIVE) 10/19/18 12:25 Urine Bilirubin SMALL (NEGATIVE) H 10/19/18 12:25 Urine Urobilinogen 4.0 E.U./dL (0.2 - 1.0) H 10/19/18 12:25 Ur Leukocyte Esterase NEGATIVE (NEGATIVE) 10/19/18 12:25 Urine RBC 0-2 /hpf (0-5) H 10/19/18 12:25 Urine WBC 0-2 /hpf (0-5) 10/19/18 12:25 Ur Epithelial Cells NONE SEEN /lpf (FEW) 10/19/18 12:25 Urine Bacteria FEW /hpf (NONE SEEN) 10/19/18 12:25 Stool Occult Blood NEGATIVE (NEGATIVE) 10/21/18 06:50 Hepatitis A IgM Ab Negative (Negative) 10/19/18 12:50 Hep Bs Antigen Negative (Negative) 10/19/18 12:50 Hep B Core IgM Ab Negative (Negative) 10/19/18 12:50 Hepatitis C Antibody 0.3 s/co ratio (0.0-0.9) 10/19/18 12:50 Blood Type O POSITIVE 10/19/18 15:20 Antibody Screen NEGATIVE 10/19/18 15:20 Crossmatch See Detail 10/19/18 15:20 - Physical Exam Vitals and I&O: Vital Signs Temp 98.2 F 10/22/18 08:00 Pulse 92 10/22/18 08:06 Resp 18 10/22/18 08:00 BP 125/82 10/22/18 08:06 Pulse Ox 98 10/22/18 08:00 Intake & Output 10/21/18 10/22/18 10/22/18 18:59 06:59 18:59 Intake Total 1700 1780 Output Total 1300 Balance 1700 480 Weight (lbs) 133.356 kg 133.356 kg Intake: Intake, IV Amount 1200 1300 Ciprofloxacin 200mg 100 100 Premix PB 200 mg In 100 ml @ 100 mls/hr IV Q12H [facility] Rx#:[id number] D5-0.45NS w/20 mEq KCL 1, 1000 1000 000 ml @ 125 mls/hr IV . Q8H [facility] Rx#:[id number] metroNIDAZOLE 500mg/NS 100 200 100mL 500 mg In 100 ml @ 100 mls/hr IV Q8HR [facility] Rx #:[id number] Oral 500 480 Output: Urine 1300 Other: # Voids 4 # Bowel Movements 1 0 Stool Characteristics Soft Formed Green Weight Source Bedscale Bedscale Active Medications: Current Medications Acetaminophen (Tylenol) 650 mg PO Q4H PRN PRN Reason: Fever > 101 Stop: 12/18/18 17:45 Last Admin: 10/20/18 15:36 Dose: 650 mg Amlodipine Besylate (Norvasc) 10 mg PO DAILY [facility] Stop: 12/19/18 08:59 Last Admin: 10/22/18 08:06 Dose: 10 mg Potassium Chloride/Dextrose/Sod Cl (D5-0.45ns W/20 Meq Kcl) 1,000 mls @ 125 mls /hr IV .Q8H [facility] Stop: 12/18/18 16:23 Last Admin: 10/22/18 04:16 Dose: 125 mls/hr Ciprofloxacin (Cipro 200mg Premix Pb) 200 mg in 100 mls @ 100 mls/hr IV Q12H [facility] Stop: 12/19/18 10:29 Last Infusion: 10/21/18 22:48 Dose: Infused Ceftriaxone Sodium 1 gm/ (Dextrose) 50 mls @ 100 mls/hr IV Q24H [facility] Stop: 12/19/18 14:59 Last Admin: 10/21/18 15:07 Dose: 100 mls/hr Metronidazole (Flagyl) 500 mg in 100 mls @ 100 mls/hr IV Q8HR [facility] Stop: 12/20/18 12:59 Last Infusion: 10/22/18 05:16 Dose: Infused Ondansetron HCl (Zofran) 4 mg IV Q6H PRN PRN Reason: Nausea / Vomiting Stop: 12/18/18 16:23 General: Alert, Oriented x3, Cooperative, No acute distress Cardiovascular: Regular rate, Normal S1, Normal S2 Lungs: Clear to auscultation Abdomen: Bowel sounds, Soft, no Tender, no Mass, no Guarding Assessment/Plan - Assessment Assessment: 1. Pancytopenia 2. Anemia 3. Cholecystitis - Plan Plan: 1. Pancytopenia. W/U in progress Possibly due to sepsis 2. Anemia. Most likely secondary to BM suppression. Megaloblastic. B12 and Folate are pending No GI bleeding. 3. Cholecystitis. Calculous Vs a alculous. US is Pending. Await results. HIDA is positive.
[2018-10-22] MEDS: Ciprofloxacin 200mg Premix PB 200 MG/100 ML BAG IV SCH ×2 (10:23→21:42)
--- NOTE | 2018-10-22 10:32 | Diagnostic Imaging Report ---
Exam: Ultrasound examination of the abdomen. HISTORY: Gallbladder disease Findings: Real-time ultrasound examination the abdomen performed planes. The study demonstrates mild fatty infiltration of liver parenchyma. There is evidence for cholelithiasis. No pericholecystic fluid collections present. Common bile duct measures 2.2 mm. Pancreas poorly seen. There is no evidence of obstructive uropathy or nephrolithiasis. Right kidney measures 12.1 x 6.7 x 6.5 cm. Left kidney measures 10.2 x 5.8 x 5.7 cm. The spleen is enlarged up to 15 cm in span. No free fluid is noted. Study is limited due to patient body habitus. IMPRESSION: Cholelithiasis. Gallbladder calculus 1.3 cm diameter in the most dependent portion of gallbladder. Splenomegaly. Limited study due to patient body habitus
--- NOTE | 2018-10-22 15:16 | General Progress Note ---
Subjective - Review of Systems Service Date: 10/22/18 Subjective: awake and alert no distress denies abdominal pain, fever, chills or nausea has been tolerating regular diet family members at bedside Objective - Results Result Diagrams: 10/22/18 06:20 10/22/18 06:20 Recent Labs: Laboratory Last Values WBC 2.2 Th/cmm (4.8-10.8) L* 10/22/18 06:20 RBC 2.35 Mil/cmm (4.30-5.70) L 10/22/18 06:20 Hgb 8.4 gm/dL (12-16) L 10/22/18 06:20 Hct 23.9 % (41.0-60) L 10/22/18 06:20 MCV 101.8 fl (80-99) H 10/22/18 06:20 MCH 35.6 pg (26.0-30.0) H 10/22/18 06:20 MCHC Differential 35.0 pg (28.0-36.0) 10/22/18 06:20 RDW 23.2 % (11.5-20.0) H 10/22/18 06:20 Plt Count 85 Th/cmm (150-400) L 10/22/18 06:20 MPV 6.3 fl 10/22/18 06:20 Add Manual Diff YES 10/22/18 06:20 Neutrophils % COURT COMMISSIONER 10/19/18 12:50 Band Neutrophils % 1 % (0-10) 10/22/18 06:20 Lymphocytes % COURT COMMISSIONER 10/19/18 12:50 Monocytes % COURT COMMISSIONER 10/19/18 12:50 Eosinophils % COURT COMMISSIONER 10/19/18 12:50 Basophils % COURT COMMISSIONER 10/19/18 12:50 Neutrophils (Manual) 55 % (40-80) 10/22/18 06:20 Lymphocytes 39 % (20-50) 10/22/18 06:20 Monocytes 5 % (2-10) 10/22/18 06:20 Eosinophils 0 % (0-5) 10/20/18 05:30 Basophils 0 % (0-3) 10/20/18 05:30 Platelet Estimate DECREASED PLATELETS (NORMAL) 10/22/18 06:20 Polychromasia 1+ 10/22/18 06:20 Poikilocytosis 1+ 10/22/18 06:20 Anisocytosis 2+ 10/22/18 06:20 Microcytosis 2+ 10/22/18 06:20 Macrocytosis 1+ 10/21/18 05:45 Tear Drop Cells 1+ 10/22/18 06:20 RBC Morph Micro Appear ABNORMAL (NORMAL) 10/22/18 06:20 ESR 127 mm/hr (0-20) H 10/20/18 06:00 PT 11.0 SECONDS (9.5-11.5) 10/22/18 06:20 INR 1.06 (0.5-1.4) 10/22/18 06:20 PTT (Actin FS) 33.6 SECONDS (26.0-38.0) 10/22/18 06:20 Sodium 134 mEq/L (136-145) L 10/22/18 06:20 Potassium 4.0 mEq/L (3.5-5.1) 10/22/18 06:20 Chloride 101 mEq/L (98-107) 10/22/18 06:20 Carbon Dioxide 28.6 mEq/L (21.0-31.0) 10/22/18 06:20 Anion Gap 8.4 (7.0-16.0) 10/22/18 06:20 BUN 11 mg/dL (7-25) 10/22/18 06:20 Creatinine 0.7 mg/dL (0.7-1.3) 10/22/18 06:20 Est GFR ( Amer) > 60.0 ml/min (>90) 10/22/18 06:20 Est GFR (Non-Af Amer) > 60.0 ml/min 10/22/18 06:20 BUN/Creatinine Ratio 15.7 10/22/18 06:20 Glucose 105 mg/dL (70-105) 10/22/18 06:20 POC Glucose 106 MG/DL (70 - 105) H 10/19/18 16:15 Whole Bld Lactic Acid 1.90 mmol/L (0.60-1.99) 10/19/18 12:50 Calcium 8.6 mg/dL (8.6-10.3) 10/22/18 06:20 Iron 117 ug/dL (38-169) 10/20/18 05:30 TIBC 211 ug/dL (250-450) L 10/20/18 05:30 Iron Saturation 55 % (15-55) 10/20/18 05:30 Unsaturated IBC 94 ug/dL (111-343) L 10/20/18 05:30 Total Bilirubin 1.3 mg/dL (0.3-1.0) H 10/22/18 06:20 Direct Bilirubin 0.57 mg/dL (0.0-0.2) H 10/20/18 06:00 AST 44 U/L (13-39) H 10/22/18 06:20 ALT 33 U/L (7-52) 10/22/18 06:20 Alkaline Phosphatase 39 U/L (34-104) 10/22/18 06:20 Total Protein 6.6 gm/dL (6.0-8.3) 10/22/18 06:20 Albumin 4.0 gm/dL (4.2-5.5) L 10/22/18 06:20 Globulin 2.6 gm/dL 10/22/18 06:20 Albumin/Globulin Ratio 1.5 (1.0-1.8) 10/22/18 06:20 Vitamin B12 150 pg/mL (232-1245) L 10/20/18 06:00 Folic Acid 9.7 ng/mL (>3.0) 10/20/18 06:00 Urine Source MIDSTREAM 10/19/18 12:25 Urine Color YELLOW 10/19/18 12:25 Urine Clarity HAZY (CLEAR) 10/19/18 12:25 Urine pH 7.0 (4.6 - 8.0) 10/19/18 12:25 Ur Specific [place] <= 1.005 (1.005-1.030) 10/19/18 12:25 Urine Protein TRACE mg/dL (NEGATIVE) 10/19/18 12:25 Urine Glucose (UA) NEGATIVE mg/dL (NEGATIVE) 10/19/18 12:25 Urine Ketones NEGATIVE mg/dL (NEGATIVE) 10/19/18 12:25 Urine Blood NEGATIVE (NEGATIVE) 10/19/18 12:25 Urine Nitrate NEGATIVE (NEGATIVE) 10/19/18 12:25 Urine Bilirubin SMALL (NEGATIVE) H 10/19/18 12:25 Urine Urobilinogen 4.0 E.U./dL (0.2 - 1.0) H 10/19/18 12:25 Ur Leukocyte Esterase NEGATIVE (NEGATIVE) 10/19/18 12:25 Urine RBC 0-2 /hpf (0-5) H 10/19/18 12:25 Urine WBC 0-2 /hpf (0-5) 10/19/18 12:25 Ur Epithelial Cells NONE SEEN /lpf (FEW) 10/19/18 12:25 Urine Bacteria FEW /hpf (NONE SEEN) 10/19/18 12:25 Stool Occult Blood NEGATIVE (NEGATIVE) 10/21/18 06:50 Hepatitis A IgM Ab Negative (Negative) 10/19/18 12:50 Hep Bs Antigen Negative (Negative) 10/19/18 12:50 Hep B Core IgM Ab Negative (Negative) 10/19/18 12:50 Hepatitis C Antibody 0.3 s/co ratio (0.0-0.9) 10/19/18 12:50 Blood Type O POSITIVE 10/19/18 15:20 Antibody Screen NEGATIVE 10/19/18 15:20 Crossmatch See Detail 10/19/18 15:20 - Physical Exam Vitals and I&O: Vital Signs Temp 97.1 F 10/22/18 11:47 Pulse 93 10/22/18 11:47 Resp 18 10/22/18 11:47 BP 118/73 10/22/18 11:47 Pulse Ox 98 10/22/18 11:47 Intake & Output 10/21/18 10/22/18 10/22/18 18:59 06:59 18:59 Intake Total 1750 1780 Output Total 1300 Balance 1750 480 Weight (lbs) 133.356 kg 133.356 kg Intake: Intake, IV Amount 1250 1300 Ciprofloxacin 200mg 100 100 Premix PB 200 mg In 100 ml @ 100 mls/hr IV Q12H [facility] Rx#:[id number] D5-0.45NS w/20 mEq KCL 1, 1000 1000 000 ml @ 125 mls/hr IV . Q8H [facility] Rx#:[id number] cefTRIAXone 1 gm In 50 Dextrose 5% 50 ml @ 100 mls/hr IV Q24H [facility] Rx#: [id number] metroNIDAZOLE 500mg/NS 100 200 100mL 500 mg In 100 ml @ 100 mls/hr IV Q8HR [facility] Rx #:[id number] Oral 500 480 Output: Urine 1300 Other: # Voids 4 # Bowel Movements 1 0 Stool Characteristics Soft Formed Green Weight Source Bedscale Bedscale Active Medications: Current Medications Acetaminophen (Tylenol) 650 mg PO Q4H PRN PRN Reason: Fever > 101 Stop: 12/18/18 17:45 Last Admin: 10/20/18 15:36 Dose: 650 mg Amlodipine Besylate (Norvasc) 10 mg PO DAILY [facility] Stop: 12/19/18 08:59 Last Admin: 10/22/18 08:06 Dose: 10 mg Potassium Chloride/Dextrose/Sod Cl (D5-0.45ns W/20 Meq Kcl) 1,000 mls @ 125 mls /hr IV .Q8H [facility] Stop: 12/18/18 16:23 Last Admin: 10/22/18 04:16 Dose: 125 mls/hr Ciprofloxacin (Cipro 200mg Premix Pb) 200 mg in 100 mls @ 100 mls/hr IV Q12H [facility] Stop: 12/19/18 10:29 Last Admin: 10/22/18 10:23 Dose: 100 mls/hr Ceftriaxone Sodium 1 gm/ (Dextrose) 50 mls @ 100 mls/hr IV Q24H [facility] Stop: 12/19/18 14:59 Last Admin: 10/22/18 14:36 Dose: 100 mls/hr Metronidazole (Flagyl) 500 mg in 100 mls @ 100 mls/hr IV Q8HR [facility] Stop: 12/20/18 12:59 Last Admin: 10/22/18 12:51 Dose: 100 mls/hr Ondansetron HCl (Zofran) 4 mg IV Q6H PRN PRN Reason: Nausea / Vomiting Stop: 12/18/18 16:23 General: Alert, Oriented x3, Cooperative, No acute distress HEENT: Atraumatic, PERRLA Neck: Supple, JVD, Thyromegaly Cardiovascular: Regular rate, Normal S1, Normal S2 Lungs: Clear to auscultation Abdomen: Bowel sounds, Soft, no Tender, no Mass, no Guarding Assessment/Plan - Assessment Assessment: abnormal HIDA, possible cholecystitis pancytopenia obesity - Plan Plan: continue current treatment will hematology clearance for surgery encouraged to ambulate as tolerated
--- NOTE | 2018-10-22 18:54 | Consultation ---
DATE OF CONSULTATION: 10/21/2018 REASON FOR CONSULTATION: Abdominal pain, nausea, vomiting, anemia. HISTORY OF PRESENT ILLNESS: This consult was obtained through the request of Dr. Rosenberg and Dr. Hurst for this 33-year-old with history of morbid obesity and hypertension, who presented to the hospital because of not feeling well, tired, fatigued, short of breath and could not even walk. When he came, he was found to be anemic, but he also has pancytopenic and workup included a CAT scan, which showed distended gallbladder and a HIDA scan was done, which showed acute cholecystitis. The patient denies any prior episodes like this. He had vomiting one time when he came to the hospital. He did not have any active GI bleed. He was constipated for one or two days to Tuesday, but he started having bowel movements today. PAST MEDICAL HISTORY: Hypertension and obesity. PAST SURGICAL HISTORY: Negative. MEDICATIONS: None. ALLERGIES: No known drug allergies. SOCIAL HISTORY: Nonsmoker, alcohol or drugs. FAMILY HISTORY: Negative for GI malignancy or liver disease. REVIEW OF SYSTEMS: Denies any weight loss. He had nausea and vomiting when he came in. He had constipation. PHYSICAL EXAMINATION: GENERAL: The patient is awake, oriented to self, place, and time, in no acute distress. VITAL SIGNS: Showed blood pressure is 131/68, heart rate 103, respiratory rate 18, temperature is 98.4. HEAD AND NECK: Pupils reactive to light and accommodation. Extraocular muscles intact. Sclerae are anicteric. Conjunctivae not pale. Oral cavity, no lesion. NECK: Supple. CHEST: Good air entry. LUNGS: Clear to auscultation. CARDIOVASCULAR: Showed regular rate and rhythm. No murmur or gallop. ABDOMEN: Soft, obese, nontender, nondistended. Bowel sounds are present. EXTREMITIES: Lower extremities, no edema. CENTRAL NERVOUS SYSTEM: Grossly nonfocal. LABORATORY DATA: PT is 10.6 seconds. Chemistry showed bilirubin of 2.4, now down to 1.4, AST 79, now down to 56, ALT 15, alkaline phosphatase 37, ____ normal at 41. Albumin is normal at 4.2. White count is 2.4., hemoglobin 8.3, hematocrit 24.1, MCV was 107.9 on presentation, now 101.1 and platelets of 100 now down to 85. X-rays as stated above. Sedimentation rate elevated at 127. IMPRESSION: A 33-year-old with pancytopenia and possible cholecystitis. ASSESSMENT AND PLAN: Pancytopenia. No history of medications to account for. Differential would include bone marrow suppression versus drug-induced even though the patient denies any medications. At this time, workup has been initiated by windows 7 deployment lead, Dr. Glass. We will await results. Doubt the patient will need a bone marrow biopsy, but if it does not improve, he might need to have it. 2. Anemia could be a secondary to the pancytopenia process. 3. Cholecystitis possibly the source of sepsis, but on the other hand, there is no definitive gallstones, so surgeon request ultrasound, which was done, await results. Meanwhile, continue with IV antibiotics, then further recommendations to follow. Thank you Dr. Rosenberg and Dr. Hurst for allowing me to participate in the care of your patient. If you have any further questions. [facility]# [id number]
--- NOTE | 2018-10-22 21:42 | General Progress Note ---
Subjective - Review of Systems Service Date: 10/22/18 Subjective: patient tolerating po diet well no fever no pain hematology to see patient does not seem symptomatic from gallstones despite HIDA wbc low platelets low high risk patient Objective - Results Result Diagrams: 10/22/18 06:20 10/22/18 06:20 Recent Labs: Laboratory Last Values WBC 2.2 Th/cmm (4.8-10.8) L* 10/22/18 06:20 RBC 2.35 Mil/cmm (4.30-5.70) L 10/22/18 06:20 Hgb 8.4 gm/dL (12-16) L 10/22/18 06:20 Hct 23.9 % (41.0-60) L 10/22/18 06:20 MCV 101.8 fl (80-99) H 10/22/18 06:20 MCH 35.6 pg (26.0-30.0) H 10/22/18 06:20 MCHC Differential 35.0 pg (28.0-36.0) 10/22/18 06:20 RDW 23.2 % (11.5-20.0) H 10/22/18 06:20 Plt Count 85 Th/cmm (150-400) L 10/22/18 06:20 MPV 6.3 fl 10/22/18 06:20 Add Manual Diff YES 10/22/18 06:20 Neutrophils % ELECT[employer]IC POWER MACHINE OPERATOR 10/19/18 12:50 Band Neutrophils % 1 % (0-10) 10/22/18 06:20 Lymphocytes % ELECT[employer]IC POWER MACHINE OPERATOR 10/19/18 12:50 Monocytes % ELECT[employer]IC POWER MACHINE OPERATOR 10/19/18 12:50 Eosinophils % ELECTRIC POWER MACHINE OPERATOR 10/19/18 12:50 Basophils % ELECTRIC POWER MACHINE OPERATOR 10/19/18 12:50 Neutrophils (Manual) 55 % (40-80) 10/22/18 06:20 Lymphocytes 39 % (20-50) 10/22/18 06:20 Monocytes 5 % (2-10) 10/22/18 06:20 Eosinophils 0 % (0-5) 10/20/18 05:30 Basophils 0 % (0-3) 10/20/18 05:30 Platelet Estimate DECREASED PLATELETS (NORMAL) 10/22/18 06:20 Polychromasia 1+ 10/22/18 06:20 Poikilocytosis 1+ 10/22/18 06:20 Anisocytosis 2+ 10/22/18 06:20 Microcytosis 2+ 10/22/18 06:20 Macrocytosis 1+ 10/21/18 05:45 Tear Drop Cells 1+ 10/22/18 06:20 RBC Morph Micro Appear ABNORMAL (NORMAL) 10/22/18 06:20 ESR 127 mm/hr (0-20) H 10/20/18 06:00 PT 11.0 SECONDS (9.5-11.5) 10/22/18 06:20 INR 1.06 (0.5-1.4) 10/22/18 06:20 PTT (Actin FS) 33.6 SECONDS (26.0-38.0) 10/22/18 06:20 Sodium 134 mEq/L (136-145) L 10/22/18 06:20 Potassium 4.0 mEq/L (3.5-5.1) 10/22/18 06:20 Chloride 101 mEq/L (98-107) 10/22/18 06:20 Carbon Dioxide 28.6 mEq/L (21.0-31.0) 10/22/18 06:20 Anion Gap 8.4 (7.0-16.0) 10/22/18 06:20 BUN 11 mg/dL (7-25) 10/22/18 06:20 Creatinine 0.7 mg/dL (0.7-1.3) 10/22/18 06:20 Est GFR ( Amer) > 60.0 ml/min (>90) 10/22/18 06:20 Est GFR (Non-Af Amer) > 60.0 ml/min 10/22/18 06:20 BUN/Creatinine Ratio 15.7 10/22/18 06:20 Glucose 105 mg/dL (70-105) 10/22/18 06:20 POC Glucose 106 MG/DL (70 - 105) H 10/19/18 16:15 Whole Bld Lactic Acid 1.90 mmol/L (0.60-1.99) 10/19/18 12:50 Calcium 8.6 mg/dL (8.6-10.3) 10/22/18 06:20 Iron 117 ug/dL (38-169) 10/20/18 05:30 TIBC 211 ug/dL (250-450) L 10/20/18 05:30 Iron Saturation 55 % (15-55) 10/20/18 05:30 Unsaturated IBC 94 ug/dL (111-343) L 10/20/18 05:30 Total Bilirubin 1.3 mg/dL (0.3-1.0) H 10/22/18 06:20 Direct Bilirubin 0.57 mg/dL (0.0-0.2) H 10/20/18 06:00 AST 44 U/L (13-39) H 10/22/18 06:20 ALT 33 U/L (7-52) 10/22/18 06:20 Alkaline Phosphatase 39 U/L (34-104) 10/22/18 06:20 Total Protein 6.6 gm/dL (6.0-8.3) 10/22/18 06:20 Albumin 4.0 gm/dL (4.2-5.5) L 10/22/18 06:20 Globulin 2.6 gm/dL 10/22/18 06:20 Albumin/Globulin Ratio 1.5 (1.0-1.8) 10/22/18 06:20 Vitamin B12 150 pg/mL (232-1245) L 10/20/18 06:00 Folic Acid 9.7 ng/mL (>3.0) 10/20/18 06:00 Urine Source MIDSTREAM 10/19/18 12:25 Urine Color YELLOW 10/19/18 12:25 Urine Clarity HAZY (CLEAR) 10/19/18 12:25 Urine pH 7.0 (4.6 - 8.0) 10/19/18 12:25 Ur Specific [place] <= 1.005 (1.005-1.030) 10/19/18 12:25 Urine Protein TRACE mg/dL (NEGATIVE) 10/19/18 12:25 Urine Glucose (UA) NEGATIVE mg/dL (NEGATIVE) 10/19/18 12:25 Urine Ketones NEGATIVE mg/dL (NEGATIVE) 10/19/18 12:25 Urine Blood NEGATIVE (NEGATIVE) 10/19/18 12:25 Urine Nitrate NEGATIVE (NEGATIVE) 10/19/18 12:25 Urine Bilirubin SMALL (NEGATIVE) H 10/19/18 12:25 Urine Urobilinogen 4.0 E.U./dL (0.2 - 1.0) H 10/19/18 12:25 Ur Leukocyte Esterase NEGATIVE (NEGATIVE) 10/19/18 12:25 Urine RBC 0-2 /hpf (0-5) H 10/19/18 12:25 Urine WBC 0-2 /hpf (0-5) 10/19/18 12:25 Ur Epithelial Cells NONE SEEN /lpf (FEW) 10/19/18 12:25 Urine Bacteria FEW /hpf (NONE SEEN) 10/19/18 12:25 Stool Occult Blood NEGATIVE (NEGATIVE) 10/22/18 19:00 Hepatitis A IgM Ab Negative (Negative) 10/19/18 12:50 Hep Bs Antigen Negative (Negative) 10/19/18 12:50 Hep B Core IgM Ab Negative (Negative) 10/19/18 12:50 Hepatitis C Antibody 0.3 s/co ratio (0.0-0.9) 10/19/18 12:50 Blood Type O POSITIVE 10/19/18 15:20 Antibody Screen NEGATIVE 10/19/18 15:20 Crossmatch See Detail 10/19/18 15:20 - Physical Exam Vitals and I&O: Vital Signs Temp 96.3 F 10/22/18 15:44 Pulse 96 10/22/18 15:44 Resp 18 10/22/18 15:44 BP 132/75 10/22/18 15:44 Pulse Ox 97 10/22/18 15:44 Intake & Output 10/22/18 10/22/18 10/23/18 06:59 18:59 06:59 Intake Total 1780 1700 Output Total 1300 Balance 480 1700 Weight (lbs) 294 lb 294 lb Intake: Intake, IV Amount 1300 1100 Ciprofloxacin 200mg 100 Premix PB 200 mg In 100 ml @ 100 mls/hr IV Q12H [facility] Rx#:[id number] D5-0.45NS w/20 mEq KCL 1, 1000 1000 000 ml @ 125 mls/hr IV . Q8H [facility] Rx#:[id number] metroNIDAZOLE 500mg/NS 200 100 100mL 500 mg In 100 ml @ 100 mls/hr IV Q8HR [facility] Rx #:[id number] Oral 480 600 Output: Urine 1300 Other: # Voids 4 # Bowel Movements 0 1 Weight Source Bedscale Bedscale Active Medications: Current Medications Acetaminophen (Tylenol) 650 mg PO Q4H PRN PRN Reason: Fever > 101 Stop: 12/18/18 17:45 Last Admin: 10/20/18 15:36 Dose: 650 mg Amlodipine Besylate (Norvasc) 10 mg PO DAILY [facility] Stop: 12/19/18 08:59 Last Admin: 10/22/18 08:06 Dose: 10 mg Potassium Chloride/Dextrose/Sod Cl (D5-0.45ns W/20 Meq Kcl) 1,000 mls @ 125 mls /hr IV .Q8H [facility] Stop: 12/18/18 16:23 Last Admin: 10/22/18 17:34 Dose: 125 mls/hr Ciprofloxacin (Cipro 200mg Premix Pb) 200 mg in 100 mls @ 100 mls/hr IV Q12H [facility] Stop: 12/19/18 10:29 Last Admin: 10/22/18 10:23 Dose: 100 mls/hr Ceftriaxone Sodium 1 gm/ (Dextrose) 50 mls @ 100 mls/hr IV Q24H [facility] Stop: 12/19/18 14:59 Last Admin: 10/22/18 14:36 Dose: 100 mls/hr Metronidazole (Flagyl) 500 mg in 100 mls @ 100 mls/hr IV Q8HR [facility] Stop: 12/20/18 12:59 Last Admin: 10/22/18 20:05 Dose: 100 mls/hr Ondansetron HCl (Zofran) 4 mg IV Q6H PRN PRN Reason: Nausea / Vomiting Stop: 12/18/18 16:23 General: Alert, Oriented x3, Cooperative, No acute distress HEENT: Atraumatic, PERRLA Neck: Supple, JVD, Thyromegaly Cardiovascular: Regular rate, Normal S1, Normal S2 Lungs: Clear to auscultation Abdomen: Bowel sounds, Soft, no Tender, no Mass, no Guarding Assessment/Plan - Assessment Assessment: hematologic disorder morbid obesity high risk for surgery would not attempt surgical intervention at this center unless emergency status elective intervention hematologic problem simultaneously
[2018-10-23] MEDS: D5-0.45NS w/20 mEq KCL 1,000 ML IV SCH ×2 (03:42→18:25)
[2018-10-23] MEDS: metroNIDAZOLE 500mg/NS 100mL 500 MG/100 ML BAG IV SCH (04:29)
[2018-10-23 05:35] LABS: HEMATOCRIT 24.1 % (41.0-60); HEMOGLOBIN 8.3 gm/dL (12-16); MEAN CELL VOLUME 101.3 fl (80-99); MEAN CORPUSCULAR HEMOGLOBIN 34.9 pg (26.0-30.0); MEAN CORPUSCULAR HGB CONC 34.4 pg (28.0-36.0); PLATELET COUNT 81 Th/cmm (150-400); RED BLOOD COUNT 2.37 Mil/cmm (4.30-5.70); RED CELL DISTRIBUTION WIDTH 23.2 % (11.5-20.0)
[2018-10-23 05:47] LABS: ALB/GLOB RATIO 1.5 (1.0-1.8); ALKALINE PHOSPHATASE 39 U/L (34-104); ANION GAP 10.4 (7.0-16.0); BILIRUBIN,TOTAL 1.3 mg/dL (0.3-1.0); BUN - UREA NITROGEN 12 mg/dL (7-25); CALCIUM SERUM 8.7 mg/dL (8.6-10.3); CARBON DIOXIDE 28.4 mEq/L (21.0-31.0); CHLORIDE 101 mEq/L (98-107); CREATININE - SERUM 0.7 mg/dL (0.7-1.3); GFR AFRICAN-AMERICAN > 60.0 ml/min (>90); GFR NON AFRICAN-AMERICAN > 60.0 ml/min; GLUCOSE 105 mg/dL (70-105); POTASSIUM SERUM 3.8 mEq/L (3.5-5.1); SGOT 49 U/L (13-39); SGPT/ALT 36 U/L (7-52); SODIUM SERUM 136 mEq/L (136-145); TOTAL PROTEIN,SERUM 6.6 gm/dL (6.0-8.3)
[2018-10-23 05:49] LABS: WHITE BLOOD COUNT 2.1 Th/cmm (4.8-10.8)
[2018-10-23 06:52] LABS: BAND NEUTROPHILE 1 % (0-10); NEUTROPHILS 47 % (40-80)
[2018-10-23 06:53] LABS: BASOPHIL 0 % (0-3); EOSINOPHIL 2 % (0-5); LYMPHOCYTE 45 % (20-50); MONOCYTE 5 % (2-10)
[2018-10-23 06:54] LABS: PLATELET ESTIMATE DECREASED PLATELETS (NORMAL)
[2018-10-23 06:55] LABS: ANISOCYTOSIS 2+; POIKILOCYTOSIS 1+
[2018-10-23 06:56] LABS: TEAR DROP CELLS 1+
[2018-10-23] MEDS: Ciprofloxacin 200mg Premix PB 200 MG/100 ML BAG IV SCH ×2 (09:34→21:36)
--- NOTE | 2018-10-23 09:48 | Infectious Disease Prog Note ---
Infectious Disease Subjective - Review of Systems Service Date: 10/23/18 Subjective: There is no new change, no fever. CT scan suggested distended gall bladder. HIDA scan came positive. US showed cholelithiasis and splenomegaly. VIT B12 is also low. Infectious Disease Objective - Results Result Diagrams: 10/23/18 04:20 10/23/18 04:20 Recent Labs: Laboratory Last Values WBC 2.1 Th/cmm (4.8-10.8) L* 10/23/18 04:20 RBC 2.37 Mil/cmm (4.30-5.70) L 10/23/18 04:20 Hgb 8.3 gm/dL (12-16) L 10/23/18 04:20 Hct 24.1 % (41.0-60) L 10/23/18 04:20 MCV 101.3 fl (80-99) H 10/23/18 04:20 MCH 34.9 pg (26.0-30.0) H 10/23/18 04:20 MCHC Differential 34.4 pg (28.0-36.0) 10/23/18 04:20 RDW 23.2 % (11.5-20.0) H 10/23/18 04:20 Plt Count 81 Th/cmm (150-400) L 10/23/18 04:20 MPV 6.1 fl 10/23/18 04:20 Add Manual Diff YES 10/23/18 04:20 Neutrophils % [employer]AGE SUPERVISOR 10/19/18 12:50 Band Neutrophils % 1 % (0-10) 10/23/18 04:20 Lymphocytes % [employer] SUPERVISOR 10/19/18 12:50 Monocytes % [employer]AGE SUPERVISOR 10/19/18 12:50 Eosinophils % [employer] SUPERVISOR 10/19/18 12:50 Basophils % [employer] SUPERVISOR 10/19/18 12:50 Neutrophils (Manual) 47 % (40-80) 10/23/18 04:20 Lymphocytes 45 % (20-50) 10/23/18 04:20 Monocytes 5 % (2-10) 10/23/18 04:20 Eosinophils 2 % (0-5) 10/23/18 04:20 Basophils 0 % (0-3) 10/23/18 04:20 Platelet Estimate DECREASED PLATELETS (NORMAL) 10/23/18 04:20 Polychromasia 1+ 10/22/18 06:20 Poikilocytosis 1+ 06/24/19 04:20 Anisocytosis 2+ 10/23/18 04:20 Microcytosis 2+ 10/22/18 06:20 Macrocytosis 1+ 10/23/18 04:20 Tear Drop Cells 1+ 10/23/18 04:20 RBC Morph Micro Appear ABNORMAL (NORMAL) 10/23/18 04:20 ESR 127 mm/hr (0-20) H 10/20/18 06:00 PT 11.0 SECONDS (9.5-11.5) 10/22/18 06:20 INR 1.06 (0.5-1.4) 10/22/18 06:20 PTT (Actin FS) 33.6 SECONDS (26.0-38.0) 10/22/18 06:20 Sodium 136 mEq/L (136-145) 10/23/18 04:20 Potassium 3.8 mEq/L (3.5-5.1) 10/23/18 04:20 Chloride 101 mEq/L (98-107) 10/23/18 04:20 Carbon Dioxide 28.4 mEq/L (21.0-31.0) 10/23/18 04:20 Anion Gap 10.4 (7.0-16.0) 10/23/18 04:20 BUN 12 mg/dL (7-25) 10/23/18 04:20 Creatinine 0.7 mg/dL (0.7-1.3) 10/23/18 04:20 Est GFR ( Amer) > 60.0 ml/min (>90) 10/23/18 04:20 Est GFR (Non-Af Amer) > 60.0 ml/min 10/23/18 04:20 BUN/Creatinine Ratio 17.1 10/23/18 04:20 Glucose 105 mg/dL (70-105) 10/23/18 04:20 POC Glucose 106 MG/DL (70 - 105) H 10/19/18 16:15 Whole Bld Lactic Acid 1.90 mmol/L (0.60-1.99) 10/19/18 12:50 Calcium 8.7 mg/dL (8.6-10.3) 10/23/18 04:20 Iron 117 ug/dL (38-169) 10/20/18 05:30 TIBC 211 ug/dL (250-450) L 10/20/18 05:30 Iron Saturation 55 % (15-55) 10/20/18 05:30 Unsaturated IBC 94 ug/dL (111-343) L 10/20/18 05:30 Total Bilirubin 1.3 mg/dL (0.3-1.0) H 10/23/18 04:20 Direct Bilirubin 0.57 mg/dL (0.0-0.2) H 10/20/18 06:00 AST 49 U/L (13-39) H 10/23/18 04:20 ALT 36 U/L (7-52) 10/23/18 04:20 Alkaline Phosphatase 39 U/L (34-104) 10/23/18 04:20 Total Protein 6.6 gm/dL (6.0-8.3) 10/23/18 04:20 Albumin 4.0 gm/dL (4.2-5.5) L 10/23/18 04:20 Globulin 2.6 gm/dL 10/23/18 04:20 Albumin/Globulin Ratio 1.5 (1.0-1.8) 10/23/18 04:20 Vitamin B12 150 pg/mL (232-1245) L 10/20/18 06:00 Folic Acid 9.7 ng/mL (>3.0) 10/20/18 06:00 Urine Source MIDSTREAM 10/19/18 12:25 Urine Color YELLOW 10/19/18 12:25 Urine Clarity HAZY (CLEAR) 10/19/18 12:25 Urine pH 7.0 (4.6 - 8.0) 10/19/18 12:25 Ur Specific [place] <= 1.005 (1.005-1.030) 10/19/18 12:25 Urine Protein TRACE mg/dL (NEGATIVE) 10/19/18 12:25 Urine Glucose (UA) NEGATIVE mg/dL (NEGATIVE) 10/19/18 12:25 Urine Ketones NEGATIVE mg/dL (NEGATIVE) 10/19/18 12:25 Urine Blood NEGATIVE (NEGATIVE) 10/19/18 12:25 Urine Nitrate NEGATIVE (NEGATIVE) 10/19/18 12:25 Urine Bilirubin SMALL (NEGATIVE) H 10/19/18 12:25 Urine Urobilinogen 4.0 E.U./dL (0.2 - 1.0) H 10/19/18 12:25 Ur Leukocyte Esterase NEGATIVE (NEGATIVE) 10/19/18 12:25 Urine RBC 0-2 /hpf (0-5) H 10/19/18 12:25 Urine WBC 0-2 /hpf (0-5) 10/19/18 12:25 Ur Epithelial Cells NONE SEEN /lpf (FEW) 10/19/18 12:25 Urine Bacteria FEW /hpf (NONE SEEN) 10/19/18 12:25 Stool Occult Blood NEGATIVE (NEGATIVE) 10/22/18 19:00 Hepatitis A IgM Ab Negative (Negative) 10/19/18 12:50 Hep Bs Antigen Negative (Negative) 10/19/18 12:50 Hep B Core IgM Ab Negative (Negative) 10/19/18 12:50 Hepatitis C Antibody 0.3 s/co ratio (0.0-0.9) 10/19/18 12:50 Blood Type O POSITIVE 10/19/18 15:20 Antibody Screen NEGATIVE 10/19/18 15:20 Crossmatch See Detail 10/19/18 15:20 - Physical Exam Vitals and I&O: Vital Signs Temp 97.1 F 10/23/18 04:00 Pulse 88 10/23/18 09:32 Resp 18 10/23/18 06:22 BP 132/70 10/23/18 09:32 Pulse Ox 100 10/23/18 04:00 Intake & Output 10/22/18 10/23/18 10/23/18 18:59 06:59 18:59 Intake Total 1800 1800 Balance 1800 1800 Weight (lbs) 133.356 kg 133.356 kg Intake: Intake, IV Amount 1200 1200 Ciprofloxacin 200mg 100 100 Premix PB 200 mg In 100 ml @ 100 mls/hr IV Q12H [facility] Rx#:[id number] D5-0.45NS w/20 mEq KCL 1, 1000 1000 000 ml @ 125 mls/hr IV . Q8H [facility] Rx#:[id number] metroNIDAZOLE 500mg/NS 100 100 100mL 500 mg In 100 ml @ 100 mls/hr IV Q8HR [facility] Rx #:[id number] Oral 600 600 Other: # Voids 4 4 # Bowel Movements 1 1 Stool Characteristics Soft Formed Brown Weight Source Bedscale Bedscale Active Medications: Current Medications Acetaminophen (Tylenol) 650 mg PO Q4H PRN PRN Reason: Fever > 101 Stop: 12/18/18 17:45 Last Admin: 10/20/18 15:36 Dose: 650 mg Amlodipine Besylate (Norvasc) 10 mg PO DAILY COUNTS INCLUDE 234 BEDS AT THE [facility] Stop: 12/19/18 08:59 Last Admin: 10/23/18 09:32 Dose: 10 mg Potassium Chloride/Dextrose/Sod Cl (D5-0.45ns W/20 Meq Kcl) 1,000 mls @ 125 mls /hr IV .Q8H COUNTS INCLUDE 234 BEDS AT THE [facility] Stop: 12/18/18 16:23 Last Admin: 10/23/18 03:42 Dose: 125 mls/hr Ciprofloxacin (Cipro 200mg Premix Pb) 200 mg in 100 mls @ 100 mls/hr IV Q12H COUNTS INCLUDE 234 BEDS AT THE [facility] Stop: 12/19/18 10:29 Last Admin: 10/23/18 09:34 Dose: 100 mls/hr Ceftriaxone Sodium 1 gm/ (Dextrose) 50 mls @ 100 mls/hr IV Q24H COUNTS INCLUDE 234 BEDS AT THE [facility] Stop: 12/19/18 14:59 Last Admin: 10/22/18 14:36 Dose: 100 mls/hr Metronidazole (Flagyl) 500 mg in 100 mls @ 100 mls/hr IV Q8HR COUNTS INCLUDE 234 BEDS AT THE [facility] Stop: 12/20/18 12:59 Last Admin: 10/23/18 04:29 Dose: 100 mls/hr Ondansetron HCl (Zofran) 4 mg IV Q6H PRN PRN Reason: Nausea / Vomiting Stop: 12/18/18 16:23 General: no acute distress, well developed, well nourished HEENT: atraumatic, normocephalic, PERRLA, EOMI, moist mucous membrane Neck: supple, no thyromegaly Cardiovascular: S1S2, regular Lungs: clear to auscultation bilaterally, clear to percussion Abdomen: soft, no tender, no distended Extremities: no cyanosis, no clubbing, no edema Neurological: awake, alert, oriented Skin: intact Infectious Disease Assmt/Plan - Assessment Assessment: 1. Pancytopenia. 2. Fever. resolved. 3. Cholelithaisis. asymptomatic. 4. Vitamin B12 deficiency. 5. Hypertension. 6. Obesity and may have sleep apnea. - Plan Plan: LIZZY gonzalez
--- NOTE | 2018-10-23 09:59 | General Progress Note ---
Subjective - Review of Systems Service Date: 10/23/18 Subjective: weak, no vomiting better than before Objective - Results Result Diagrams: 10/23/18 04:20 10/23/18 04:20 Recent Labs: Laboratory Last Values WBC 2.1 Th/cmm (4.8-10.8) L* 10/23/18 04:20 RBC 2.37 Mil/cmm (4.30-5.70) L 10/23/18 04:20 Hgb 8.3 gm/dL (12-16) L 10/23/18 04:20 Hct 24.1 % (41.0-60) L 10/23/18 04:20 MCV 101.3 fl (80-99) H 10/23/18 04:20 MCH 34.9 pg (26.0-30.0) H 10/23/18 04:20 MCHC Differential 34.4 pg (28.0-36.0) 10/23/18 04:20 RDW 23.2 % (11.5-20.0) H 10/23/18 04:20 Plt Count 81 Th/cmm (150-400) L 10/23/18 04:20 MPV 6.1 fl 10/23/18 04:20 Add Manual Diff YES 10/23/18 04:20 Neutrophils % BISCUIT MAKER 10/19/18 12:50 Band Neutrophils % 1 % (0-10) 10/23/18 04:20 Lymphocytes % BISCUIT MAKER 10/19/18 12:50 Monocytes % BISCUIT MAKER 10/19/18 12:50 Eosinophils % BISCUIT MAKER 10/19/18 12:50 Basophils % BISCUIT MAKER 10/19/18 12:50 Neutrophils (Manual) 47 % (40-80) 10/23/18 04:20 Lymphocytes 45 % (20-50) 10/23/18 04:20 Monocytes 5 % (2-10) 10/23/18 04:20 Eosinophils 2 % (0-5) 10/23/18 04:20 Basophils 0 % (0-3) 10/23/18 04:20 Platelet Estimate DECREASED PLATELETS (NORMAL) 10/23/18 04:20 Polychromasia 1+ 10/22/18 06:20 Poikilocytosis 1+ 10/23/18 04:20 Anisocytosis 2+ 10/23/18 04:20 Microcytosis 2+ 10/22/18 06:20 Macrocytosis 1+ 10/23/18 04:20 Tear Drop Cells 1+ 10/23/18 04:20 RBC Morph Micro Appear ABNORMAL (NORMAL) 10/23/18 04:20 ESR 127 mm/hr (0-20) H 10/20/18 06:00 PT 11.0 SECONDS (9.5-11.5) 10/22/18 06:20 INR 1.06 (0.5-1.4) 10/22/18 06:20 PTT (Actin FS) 33.6 SECONDS (26.0-38.0) 10/22/18 06:20 Sodium 136 mEq/L (136-145) 10/23/18 04:20 Potassium 3.8 mEq/L (3.5-5.1) 10/23/18 04:20 Chloride 101 mEq/L (98-107) 10/23/18 04:20 Carbon Dioxide 28.4 mEq/L (21.0-31.0) 10/23/18 04:20 Anion Gap 10.4 (7.0-16.0) 10/23/18 04:20 BUN 12 mg/dL (7-25) 10/23/18 04:20 Creatinine 0.7 mg/dL (0.7-1.3) 10/23/18 04:20 Est GFR ( Amer) > 60.0 ml/min (>90) 10/23/18 04:20 Est GFR (Non-Af Amer) > 60.0 ml/min 10/23/18 04:20 BUN/Creatinine Ratio 17.1 10/23/18 04:20 Glucose 105 mg/dL (70-105) 10/23/18 04:20 POC Glucose 106 MG/DL (70 - 105) H 10/19/18 16:15 Whole Bld Lactic Acid 1.90 mmol/L (0.60-1.99) 10/19/18 12:50 Calcium 8.7 mg/dL (8.6-10.3) 10/23/18 04:20 Iron 117 ug/dL (38-169) 10/20/18 05:30 TIBC 211 ug/dL (250-450) L 10/20/18 05:30 Iron Saturation 55 % (15-55) 10/20/18 05:30 Unsaturated IBC 94 ug/dL (111-343) L 10/20/18 05:30 Total Bilirubin 1.3 mg/dL (0.3-1.0) H 10/23/18 04:20 Direct Bilirubin 0.57 mg/dL (0.0-0.2) H 10/20/18 06:00 AST 49 U/L (13-39) H 10/23/18 04:20 ALT 36 U/L (7-52) 10/23/18 04:20 Alkaline Phosphatase 39 U/L (34-104) 10/23/18 04:20 Total Protein 6.6 gm/dL (6.0-8.3) 10/23/18 04:20 Albumin 4.0 gm/dL (4.2-5.5) L 10/23/18 04:20 Globulin 2.6 gm/dL 10/23/18 04:20 Albumin/Globulin Ratio 1.5 (1.0-1.8) 10/23/18 04:20 Vitamin B12 150 pg/mL (232-1245) L 10/20/18 06:00 Folic Acid 9.7 ng/mL (>3.0) 10/20/18 06:00 Urine Source MIDSTREAM 10/19/18 12:25 Urine Color YELLOW 10/19/18 12:25 Urine Clarity HAZY (CLEAR) 10/19/18 12:25 Urine pH 7.0 (4.6 - 8.0) 10/19/18 12:25 Ur Specific [place] <= 1.005 (1.005-1.030) 10/19/18 12:25 Urine Protein TRACE mg/dL (NEGATIVE) 10/19/18 12:25 Urine Glucose (UA) NEGATIVE mg/dL (NEGATIVE) 10/19/18 12:25 Urine Ketones NEGATIVE mg/dL (NEGATIVE) 10/19/18 12:25 Urine Blood NEGATIVE (NEGATIVE) 10/19/18 12:25 Urine Nitrate NEGATIVE (NEGATIVE) 10/19/18 12:25 Urine Bilirubin SMALL (NEGATIVE) H 10/19/18 12:25 Urine Urobilinogen 4.0 E.U./dL (0.2 - 1.0) H 10/19/18 12:25 Ur Leukocyte Esterase NEGATIVE (NEGATIVE) 10/19/18 12:25 Urine RBC 0-2 /hpf (0-5) H 10/19/18 12:25 Urine WBC 0-2 /hpf (0-5) 10/19/18 12:25 Ur Epithelial Cells NONE SEEN /lpf (FEW) 10/19/18 12:25 Urine Bacteria FEW /hpf (NONE SEEN) 10/19/18 12:25 Stool Occult Blood NEGATIVE (NEGATIVE) 10/22/18 19:00 Hepatitis A IgM Ab Negative (Negative) 10/19/18 12:50 Hep Bs Antigen Negative (Negative) 10/19/18 12:50 Hep B Core IgM Ab Negative (Negative) 10/19/18 12:50 Hepatitis C Antibody 0.3 s/co ratio (0.0-0.9) 10/19/18 12:50 Blood Type O POSITIVE 10/19/18 15:20 Antibody Screen NEGATIVE 10/19/18 15:20 Crossmatch See Detail 10/19/18 15:20 - Physical Exam Vitals and I&O: Vital Signs Temp 97.1 F 10/23/18 04:00 Pulse 88 10/23/18 09:32 Resp 18 10/23/18 06:22 BP 132/70 10/23/18 09:32 Pulse Ox 100 10/23/18 04:00 Intake & Output 10/22/18 10/23/18 10/23/18 18:59 06:59 18:59 Intake Total 1800 1800 Balance 1800 1800 Weight (lbs) 133.356 kg 133.356 kg Intake: Intake, IV Amount 1200 1200 Ciprofloxacin 200mg 100 100 Premix PB 200 mg In 100 ml @ 100 mls/hr IV Q12H [facility] Rx#:[id number] D5-0.45NS w/20 mEq KCL 1, 1000 1000 000 ml @ 125 mls/hr IV . Q8H [facility] Rx#:[id number] metroNIDAZOLE 500mg/NS 100 100 100mL 500 mg In 100 ml @ 100 mls/hr IV Q8HR [facility] Rx #:[id number] Oral 600 600 Other: # Voids 4 4 # Bowel Movements 1 1 Stool Characteristics Soft Formed Brown Weight Source Bedscale Bedscale Active Medications: Current Medications Acetaminophen (Tylenol) 650 mg PO Q4H PRN PRN Reason: Fever > 101 Stop: 12/18/18 17:45 Last Admin: 10/20/18 15:36 Dose: 650 mg Amlodipine Besylate (Norvasc) 10 mg PO DAILY [facility] Stop: 12/19/18 08:59 Last Admin: 10/23/18 09:32 Dose: 10 mg Cyanocobalamin (Vitamin B12) 1,000 mcg IM QMONTH [facility] Stop: 12/22/18 09:59 Potassium Chloride/Dextrose/Sod Cl (D5-0.45ns W/20 Meq Kcl) 1,000 mls @ 125 mls /hr IV .Q8H [facility] Stop: 12/18/18 16:23 Last Admin: 10/23/18 03:42 Dose: 125 mls/hr Ciprofloxacin (Cipro 200mg Premix Pb) 200 mg in 100 mls @ 100 mls/hr IV Q12H [facility] Stop: 12/19/18 10:29 Last Admin: 10/23/18 09:34 Dose: 100 mls/hr Ceftriaxone Sodium 1 gm/ (Dextrose) 50 mls @ 100 mls/hr IV Q24H [facility] Stop: 12/19/18 14:59 Last Admin: 10/22/18 14:36 Dose: 100 mls/hr Metronidazole (Flagyl) 500 mg in 100 mls @ 100 mls/hr IV Q8HR [facility] Stop: 12/20/18 12:59 Last Admin: 10/23/18 04:29 Dose: 100 mls/hr Ondansetron HCl (Zofran) 4 mg IV Q6H PRN PRN Reason: Nausea / Vomiting Stop: 12/18/18 16:23 General: Alert, Oriented x3, Cooperative, No acute distress HEENT: Atraumatic, PERRLA Neck: Supple, JVD, Thyromegaly Cardiovascular: Regular rate, Normal S1, Normal S2 Lungs: Clear to auscultation Abdomen: Bowel sounds, Soft, no Tender, no Mass, no Guarding Assessment/Plan - Assessment Assessment: * Pancytopenia sec to Splenic sequestration and Vitamin B12 deficiency B12 supplementation Check pernicious anemia serology not neutropenic, no need for neupogen
--- NOTE | 2018-10-23 16:42 | GI Progress Note ---
Subjective - Review of Systems Service Date: 10/23/18 Events since last encounter: No new events, denies any abdominal pain. Also denied any alcohol use GI OBJECTIVE - Results Result Diagrams: 10/23/18 04:20 10/23/18 04:20 Recent Labs: Laboratory Last Values WBC 2.1 Th/cmm (4.8-10.8) L* 10/23/18 04:20 RBC 2.37 Mil/cmm (4.30-5.70) L 10/23/18 04:20 Hgb 8.3 gm/dL (12-16) L 10/23/18 04:20 Hct 24.1 % (41.0-60) L 10/23/18 04:20 MCV 101.3 fl (80-99) H 10/23/18 04:20 MCH 34.9 pg (26.0-30.0) H 10/23/18 04:20 MCHC Differential 34.4 pg (28.0-36.0) 10/23/18 04:20 RDW 23.2 % (11.5-20.0) H 10/23/18 04:20 Plt Count 81 Th/cmm (150-400) L 10/23/18 04:20 MPV 6.1 fl 10/23/18 04:20 Add Manual Diff YES 10/23/18 04:20 Neutrophils % TECHNOLOGY PROJECT MANAGER 10/19/18 12:50 Band Neutrophils % 1 % (0-10) 10/23/18 04:20 Lymphocytes % TECHNOLOGY PROJECT MANAGER 10/19/18 12:50 Monocytes % TECHNOLOGY PROJECT MANAGER 10/19/18 12:50 Eosinophils % TECHNOLOGY PROJECT MANAGER 10/19/18 12:50 Basophils % TECHNOLOGY PROJECT MANAGER 10/19/18 12:50 Neutrophils (Manual) 47 % (40-80) 10/23/18 04:20 Lymphocytes 45 % (20-50) 10/23/18 04:20 Monocytes 5 % (2-10) 10/23/18 04:20 Eosinophils 2 % (0-5) 10/23/18 04:20 Basophils 0 % (0-3) 10/23/18 04:20 Platelet Estimate DECREASED PLATELETS (NORMAL) 10/23/18 04:20 Polychromasia 1+ 10/22/18 06:20 Poikilocytosis 1+ 10/23/18 04:20 Anisocytosis 2+ 10/23/18 04:20 Microcytosis 2+ 10/22/18 06:20 Macrocytosis 1+ 10/23/18 04:20 Tear Drop Cells 1+ 10/23/18 04:20 RBC Morph Micro Appear ABNORMAL (NORMAL) 10/23/18 04:20 ESR 127 mm/hr (0-20) H 10/20/18 06:00 PT 11.0 SECONDS (9.5-11.5) 10/22/18 06:20 INR 1.06 (0.5-1.4) 10/22/18 06:20 PTT (Actin FS) 33.6 SECONDS (26.0-38.0) 10/22/18 06:20 Sodium 136 mEq/L (136-145) 10/23/18 04:20 Potassium 3.8 mEq/L (3.5-5.1) 10/23/18 04:20 Chloride 101 mEq/L (98-107) 10/23/18 04:20 Carbon Dioxide 28.4 mEq/L (21.0-31.0) 10/23/18 04:20 Anion Gap 10.4 (7.0-16.0) 10/23/18 04:20 BUN 12 mg/dL (7-25) 10/23/18 04:20 Creatinine 0.7 mg/dL (0.7-1.3) 10/23/18 04:20 Est GFR ( Amer) > 60.0 ml/min (>90) 10/23/18 04:20 Est GFR (Non-Af Amer) > 60.0 ml/min 10/23/18 04:20 BUN/Creatinine Ratio 17.1 10/23/18 04:20 Glucose 105 mg/dL (70-105) 10/23/18 04:20 POC Glucose 106 MG/DL (70 - 105) H 10/19/18 16:15 Whole Bld Lactic Acid 1.90 mmol/L (0.60-1.99) 10/19/18 12:50 Calcium 8.7 mg/dL (8.6-10.3) 10/23/18 04:20 Iron 117 ug/dL (38-169) 10/20/18 05:30 TIBC 211 ug/dL (250-450) L 10/20/18 05:30 Iron Saturation 55 % (15-55) 10/20/18 05:30 Unsaturated IBC 94 ug/dL (111-343) L 10/20/18 05:30 Total Bilirubin 1.3 mg/dL (0.3-1.0) H 10/23/18 04:20 Direct Bilirubin 0.57 mg/dL (0.0-0.2) H 10/20/18 06:00 AST 49 U/L (13-39) H 10/23/18 04:20 ALT 36 U/L (7-52) 10/23/18 04:20 Alkaline Phosphatase 39 U/L (34-104) 10/23/18 04:20 Total Protein 6.6 gm/dL (6.0-8.3) 10/23/18 04:20 Albumin 4.0 gm/dL (4.2-5.5) L 10/23/18 04:20 Globulin 2.6 gm/dL 10/23/18 04:20 Albumin/Globulin Ratio 1.5 (1.0-1.8) 10/23/18 04:20 Vitamin B12 150 pg/mL (232-1245) L 10/20/18 06:00 Folic Acid 9.7 ng/mL (>3.0) 10/20/18 06:00 Urine Source MIDSTREAM 10/19/18 12:25 Urine Color YELLOW 10/19/18 12:25 Urine Clarity HAZY (CLEAR) 10/19/18 12:25 Urine pH 7.0 (4.6 - 8.0) 10/19/18 12:25 Ur Specific [place] <= 1.005 (1.005-1.030) 10/19/18 12:25 Urine Protein TRACE mg/dL (NEGATIVE) 10/19/18 12:25 Urine Glucose (UA) NEGATIVE mg/dL (NEGATIVE) 10/19/18 12:25 Urine Ketones NEGATIVE mg/dL (NEGATIVE) 10/19/18 12:25 Urine Blood NEGATIVE (NEGATIVE) 10/19/18 12:25 Urine Nitrate NEGATIVE (NEGATIVE) 10/19/18 12:25 Urine Bilirubin SMALL (NEGATIVE) H 10/19/18 12:25 Urine Urobilinogen 4.0 E.U./dL (0.2 - 1.0) H 10/19/18 12:25 Ur Leukocyte Esterase NEGATIVE (NEGATIVE) 10/19/18 12:25 Urine RBC 0-2 /hpf (0-5) H 10/19/18 12:25 Urine WBC 0-2 /hpf (0-5) 10/19/18 12:25 Ur Epithelial Cells NONE SEEN /lpf (FEW) 10/19/18 12:25 Urine Bacteria FEW /hpf (NONE SEEN) 10/19/18 12:25 Stool Occult Blood NEGATIVE (NEGATIVE) 10/22/18 19:00 Hepatitis A IgM Ab Negative (Negative) 10/19/18 12:50 Hep Bs Antigen Negative (Negative) 10/19/18 12:50 Hep B Core IgM Ab Negative (Negative) 10/19/18 12:50 Hepatitis C Antibody 0.3 s/co ratio (0.0-0.9) 10/19/18 12:50 Blood Type O POSITIVE 10/19/18 15:20 Antibody Screen NEGATIVE 10/19/18 15:20 Crossmatch See Detail 10/19/18 15:20 - Physical Exam Vitals and I&O: Vital Signs Temp 97 F 10/23/18 08:00 Pulse 88 10/23/18 09:32 Resp 18 10/23/18 11:00 BP 132/70 10/23/18 09:32 Pulse Ox 100 10/23/18 04:00 Intake & Output 10/22/18 10/23/18 10/23/18 18:59 06:59 18:59 Intake Total 1800 1800 Balance 1800 1800 Weight (lbs) 133.356 kg 133.356 kg 133.356 kg Intake: Intake, IV Amount 1200 1200 Ciprofloxacin 200mg 100 100 Premix PB 200 mg In 100 ml @ 100 mls/hr IV Q12H [facility] Rx#:[id number] D5-0.45NS w/20 mEq KCL 1, 1000 1000 000 ml @ 125 mls/hr IV . Q8H [facility] Rx#:[id number] metroNIDAZOLE 500mg/NS 100 100 100mL 500 mg In 100 ml @ 100 mls/hr IV Q8HR [facility] Rx #:[id number] Oral 600 600 Other: # Voids 4 4 # Bowel Movements 1 1 Stool Characteristics Soft Formed Brown Weight Source Bedscale Bedscale Bedscale Active Medications: Current Medications Acetaminophen (Tylenol) 650 mg PO Q4H PRN PRN Reason: Fever > 101 Stop: 12/18/18 17:45 Last Admin: 10/20/18 15:36 Dose: 650 mg Amlodipine Besylate (Norvasc) 10 mg PO DAILY [facility] Stop: 12/19/18 08:59 Last Admin: 10/23/18 09:32 Dose: 10 mg Cyanocobalamin (Vitamin B12) 1,000 mcg IM QMONTH [facility] Stop: 12/22/18 09:59 Last Admin: 10/23/18 12:11 Dose: 1,000 mcg Potassium Chloride/Dextrose/Sod Cl (D5-0.45ns W/20 Meq Kcl) 1,000 mls @ 125 mls /hr IV .Q8H [facility] Stop: 12/18/18 16:23 Last Admin: 10/23/18 03:42 Dose: 125 mls/hr Ciprofloxacin (Cipro 200mg Premix Pb) 200 mg in 100 mls @ 100 mls/hr IV Q12H [facility] Stop: 12/19/18 10:29 Last Admin: 10/23/18 09:34 Dose: 100 mls/hr Ondansetron HCl (Zofran) 4 mg IV Q6H PRN PRN Reason: Nausea / Vomiting Stop: 12/18/18 16:23 General: Alert, Oriented x3, Cooperative HEENT: Atraumatic, PERRLA, EOMI Neck: Supple Cardiovascular: Normal S1, Normal S2 Lungs: Clear to auscultation Abdomen: Bowel sounds, Soft Assessment/Plan - Assessment Assessment: 1. Pancytopenia 2. Low B12 3. Abdoiminal Pain -Patient has low vitamin B 12 - consider megaloblastic anemia from alcohol(pt denies), vs gastritis vs [place] vs malabsorption issue vs poor nutrition vs other -Recommend at least a diagnostic EGD; patient prefers to have this performed in house -NPO after midnight; further recs pending EGD -Noted surgical plan for CCY possibly later
--- NOTE | 2018-10-23 19:11 | Internal Medicine Prog Note ---
Internal Medicine Subjective - Subjective Service Date: 10/23/18 Patient seen and examined:: without staff (HE FEELS BETTER,SCHEDULED FOR EGD IN AM.) Patient is:: awake, verbal, in bed, talking Per staff patient has:: no adverse event, eating well, tolerating meds Internal Medicine Objective - Results Result Diagrams: 10/23/18 04:20 10/23/18 04:20 Recent Labs: Laboratory Last Values WBC 2.1 Th/cmm (4.8-10.8) L* 10/23/18 04:20 RBC 2.37 Mil/cmm (4.30-5.70) L 10/23/18 04:20 Hgb 8.3 gm/dL (12-16) L 10/23/18 04:20 Hct 24.1 % (41.0-60) L 10/23/18 04:20 MCV 101.3 fl (80-99) H 10/23/18 04:20 MCH 34.9 pg (26.0-30.0) H 10/23/18 04:20 MCHC Differential 34.4 pg (28.0-36.0) 10/23/18 04:20 RDW 23.2 % (11.5-20.0) H 10/23/18 04:20 Plt Count 81 Th/cmm (150-400) L 10/23/18 04:20 MPV 6.1 fl 10/23/18 04:20 Add Manual Diff YES 10/23/18 04:20 Neutrophils % BUILDING PERFORMANCE SPECIALIST 10/19/18 12:50 Band Neutrophils % 1 % (0-10) 10/23/18 04:20 Lymphocytes % BUILDING PERFORMANCE SPECIALIST 10/19/18 12:50 Monocytes % BUILDING PERFORMANCE SPECIALIST 10/19/18 12:50 Eosinophils % BUILDING PERFORMANCE SPECIALIST 10/19/18 12:50 Basophils % BUILDING PERFORMANCE SPECIALIST 10/19/18 12:50 Neutrophils (Manual) 47 % (40-80) 10/23/18 04:20 Lymphocytes 45 % (20-50) 10/23/18 04:20 Monocytes 5 % (2-10) 10/23/18 04:20 Eosinophils 2 % (0-5) 10/23/18 04:20 Basophils 0 % (0-3) 10/23/18 04:20 Platelet Estimate DECREASED PLATELETS (NORMAL) 10/23/18 04:20 Polychromasia 1+ 10/22/18 06:20 Poikilocytosis 1+ 10/23/18 04:20 Anisocytosis 2+ 10/23/18 04:20 Microcytosis 2+ 10/22/18 06:20 Macrocytosis 1+ 10/23/18 04:20 Tear Drop Cells 1+ 10/23/18 04:20 RBC Morph Micro Appear ABNORMAL (NORMAL) 10/23/18 04:20 ESR 127 mm/hr (0-20) H 10/20/18 06:00 PT 11.0 SECONDS (9.5-11.5) 10/22/18 06:20 INR 1.06 (0.5-1.4) 10/22/18 06:20 PTT (Actin FS) 33.6 SECONDS (26.0-38.0) 10/22/18 06:20 Sodium 136 mEq/L (136-145) 10/23/18 04:20 Potassium 3.8 mEq/L (3.5-5.1) 10/23/18 04:20 Chloride 101 mEq/L (98-107) 10/23/18 04:20 Carbon Dioxide 28.4 mEq/L (21.0-31.0) 10/23/18 04:20 Anion Gap 10.4 (7.0-16.0) 10/23/18 04:20 BUN 12 mg/dL (7-25) 10/23/18 04:20 Creatinine 0.7 mg/dL (0.7-1.3) 10/23/18 04:20 Est GFR ( Amer) > 60.0 ml/min (>90) 10/23/18 04:20 Est GFR (Non-Af Amer) > 60.0 ml/min 10/23/18 04:20 BUN/Creatinine Ratio 17.1 10/23/18 04:20 Glucose 105 mg/dL (70-105) 10/23/18 04:20 POC Glucose 106 MG/DL (70 - 105) H 10/19/18 16:15 Whole Bld Lactic Acid 1.90 mmol/L (0.60-1.99) 10/19/18 12:50 Calcium 8.7 mg/dL (8.6-10.3) 10/23/18 04:20 Iron 117 ug/dL (38-169) 10/20/18 05:30 TIBC 211 ug/dL (250-450) L 10/20/18 05:30 Iron Saturation 55 % (15-55) 10/20/18 05:30 Unsaturated IBC 94 ug/dL (111-343) L 10/20/18 05:30 Total Bilirubin 1.3 mg/dL (0.3-1.0) H 10/23/18 04:20 Direct Bilirubin 0.57 mg/dL (0.0-0.2) H 10/20/18 06:00 AST 49 U/L (13-39) H 10/23/18 04:20 ALT 36 U/L (7-52) 10/23/18 04:20 Alkaline Phosphatase 39 U/L (34-104) 10/23/18 04:20 Total Protein 6.6 gm/dL (6.0-8.3) 10/23/18 04:20 Albumin 4.0 gm/dL (4.2-5.5) L 10/23/18 04:20 Globulin 2.6 gm/dL 10/23/18 04:20 Albumin/Globulin Ratio 1.5 (1.0-1.8) 10/23/18 04:20 Vitamin B12 150 pg/mL (232-1245) L 10/20/18 06:00 Folic Acid 9.7 ng/mL (>3.0) 10/20/18 06:00 Urine Source MIDSTREAM 10/19/18 12:25 Urine Color YELLOW 10/19/18 12:25 Urine Clarity HAZY (CLEAR) 10/19/18 12:25 Urine pH 7.0 (4.6 - 8.0) 10/19/18 12:25 Ur Specific [place] <= 1.005 (1.005-1.030) 10/19/18 12:25 Urine Protein TRACE mg/dL (NEGATIVE) 10/19/18 12:25 Urine Glucose (UA) NEGATIVE mg/dL (NEGATIVE) 10/19/18 12:25 Urine Ketones NEGATIVE mg/dL (NEGATIVE) 10/19/18 12:25 Urine Blood NEGATIVE (NEGATIVE) 10/19/18 12:25 Urine Nitrate NEGATIVE (NEGATIVE) 10/19/18 12:25 Urine Bilirubin SMALL (NEGATIVE) H 10/19/18 12:25 Urine Urobilinogen 4.0 E.U./dL (0.2 - 1.0) H 10/19/18 12:25 Ur Leukocyte Esterase NEGATIVE (NEGATIVE) 10/19/18 12:25 Urine RBC 0-2 /hpf (0-5) H 10/19/18 12:25 Urine WBC 0-2 /hpf (0-5) 10/19/18 12:25 Ur Epithelial Cells NONE SEEN /lpf (FEW) 10/19/18 12:25 Urine Bacteria FEW /hpf (NONE SEEN) 10/19/18 12:25 Stool Occult Blood NEGATIVE (NEGATIVE) 10/22/18 19:00 Hepatitis A IgM Ab Negative (Negative) 10/19/18 12:50 Hep Bs Antigen Negative (Negative) 10/19/18 12:50 Hep B Core IgM Ab Negative (Negative) 10/19/18 12:50 Hepatitis C Antibody 0.3 s/co ratio (0.0-0.9) 10/19/18 12:50 Blood Type O POSITIVE 10/19/18 15:20 Antibody Screen NEGATIVE 10/19/18 15:20 Crossmatch See Detail 10/19/18 15:20 - Physical Exam Vitals and I&O: Vital Signs Temp 98 F 10/23/18 16:00 Pulse 98 10/23/18 16:00 Resp 18 10/23/18 17:58 BP 116/89 10/23/18 16:00 Pulse Ox 100 10/23/18 04:00 Intake & Output 10/23/18 10/23/18 10/24/18 06:59 18:59 06:59 Intake Total 1800 1600 Balance 1800 1600 Weight (lbs) 133.356 kg 133.356 kg Intake: Intake, IV Amount 1200 1100 Ciprofloxacin 200mg 100 100 Premix PB 200 mg In 100 ml @ 100 mls/hr IV Q12H [facility] Rx#:[id number] D5-0.45NS w/20 mEq KCL 1, 1000 1000 000 ml @ 125 mls/hr IV . Q8H [facility] Rx#:[id number] metroNIDAZOLE 500mg/NS 100 100mL 500 mg In 100 ml @ 100 mls/hr IV Q8HR [facility] Rx #:[id number] Oral 600 500 Other: # Voids 4 3 # Bowel Movements 1 1 Stool Characteristics Soft Formed Brown Weight Source Bedscale Bedscale Active Medications: Current Medications Acetaminophen (Tylenol) 650 mg PO Q4H PRN PRN Reason: Fever > 101 Stop: 12/18/18 17:45 Last Admin: 10/20/18 15:36 Dose: 650 mg Amlodipine Besylate (Norvasc) 10 mg PO DAILY [facility] Stop: 12/19/18 08:59 Last Admin: 10/23/18 09:32 Dose: 10 mg Cyanocobalamin (Vitamin B12) 1,000 mcg IM QMONTH [facility] Stop: 12/22/18 09:59 Last Admin: 10/23/18 12:11 Dose: 1,000 mcg Potassium Chloride/Dextrose/Sod Cl (D5-0.45ns W/20 Meq Kcl) 1,000 mls @ 125 mls /hr IV .Q8H [facility] Stop: 12/18/18 16:23 Last Admin: 10/23/18 18:25 Dose: 125 mls/hr Ciprofloxacin (Cipro 200mg Premix Pb) 200 mg in 100 mls @ 100 mls/hr IV Q12H [facility] Stop: 12/19/18 10:29 Last Infusion: 10/23/18 10:35 Dose: Infused Ondansetron HCl (Zofran) 4 mg IV Q6H PRN PRN Reason: Nausea / Vomiting Stop: 12/18/18 16:23 General: alert, obese HEENT: NC/AT, PERRLA, EOMI, anicteric sclerae, throat clear Neck: Supple, No JVD, No thyromegaly, +2 carotid pulse wo bruit, No LAD Lungs: CTAB Cardiovascular: Normal S1, Normal S2, without murmur Abdomen: soft, non-tender, non-distended Extremities: clear Neurological: no change Internal Medicine Assmt/Plan - Assessment Assessment: 1.PANCYTOPENIA. 2.B12 DEFECIENCY. 3.HTN 3.CHOLELITHIASIS. - Plan Plan: continue on current medication and diet.
[2018-10-24] MEDS: D5-0.45NS w/20 mEq KCL 1,000 ML IV SCH ×3 (01:24→21:21)
[2018-10-24 05:03] LABS: INR 0.98 (0.5-1.4)
[2018-10-24] MEDS: Ciprofloxacin 200mg Premix PB 200 MG/100 ML BAG IV SCH ×2 (10:30→22:38)
[2018-10-24] MEDS ORDERED: Lidocaine 2% Gel 5 mL TP ONE (13:30)
[2018-10-24] MEDS ORDERED: Propofol 10 mg/mL 20mL Vial **SURGERY USE ONLY IV ONE (13:30)
--- NOTE | 2018-10-24 14:48 | Operative Report ---
DATE OF SURGERY: 10/24/2018 PROCEDURE PERFORMED: EGD with biopsy. PREOPERATIVE DIAGNOSES: 1. Pancytopenia. 2. B12 deficiency. POSTOPERATIVE DIAGNOSES: 1. Mild antral gastritis, status post duodenal and gastric biopsies. 2. Status post specific Helicobacter pylori biopsies to rule out any pyle gastritis that could be contributing to B12 deficiency. INDICATIONS: This is a 33-year-old gentleman who presents for severe anemia with low B12. An EGD was chosen for further evaluation, diagnoses and management for differential diagnosis. CONSENT: Informed consent was obtained from the patient after explaining the risks, benefits and alternatives to the procedure, which were understood and so stated. SEDATION: Per anesthesia. EGD: While the patient was in the left lateral decubitus position, a GIF-H180 scope was introduced through the patient's mouth and advanced under direct visualization into the esophagus into the stomach and up to the second portion of the duodenum. Here, the scope was withdrawn carefully examining the color, texture, anatomy, and the mucosa. The D1 and D2 portions appeared normal. Biopsies were obtained in the duodenum to rule out any pathology. The scope was then brought back to the gastric body where retroflexion was performed, which was normal. There was no typical evidence of any Menetrier's or thickened folds or definite pyle gastritis. There was mild antral gastritis that was seen. Biopsies were obtained to rule out H. pylori. The stomach was decompressed. The scope was brought back to the GE junction, which was present at 40 cm from the incisors. The esophagus appeared normal. The scope was then withdrawn and the patient tolerated the procedure well. RECOMMENDATIONS: 1. Okay to advance diet. 2. Follow up with Hematology. 3. Other workup per primary care. 4. GI will continue to follow while the patient in the hospital. Thank you for allowing us to participate in this patient's care. JOB# [id number]
--- NOTE | 2018-10-24 16:59 | General Progress Note ---
Subjective - Review of Systems Service Date: 10/24/18 Subjective: weak, no vomiting no abd pain better than before Objective - Results Result Diagrams: 10/23/18 04:20 10/23/18 04:20 Recent Labs: Laboratory Last Values WBC 2.1 Th/cmm (4.8-10.8) L* 10/23/18 04:20 RBC 2.37 Mil/cmm (4.30-5.70) L 10/23/18 04:20 Hgb 8.3 gm/dL (12-16) L 10/23/18 04:20 Hct 24.1 % (41.0-60) L 10/23/18 04:20 MCV 101.3 fl (80-99) H 10/23/18 04:20 MCH 34.9 pg (26.0-30.0) H 10/23/18 04:20 MCHC Differential 34.4 pg (28.0-36.0) 10/23/18 04:20 RDW 23.2 % (11.5-20.0) H 10/23/18 04:20 Plt Count 81 Th/cmm (150-400) L 10/23/18 04:20 MPV 6.1 fl 10/23/18 04:20 Add Manual Diff YES 10/23/18 04:20 Neutrophils % [employer]BER 10/19/18 12:50 Band Neutrophils % 1 % (0-10) 10/23/18 04:20 Lymphocytes % [employer] 10/19/18 12:50 Monocytes % [employer]BER 10/19/18 12:50 Eosinophils % [employer]BER 10/19/18 12:50 Basophils % [employer]BER 10/19/18 12:50 Neutrophils (Manual) 47 % (40-80) 10/23/18 04:20 Lymphocytes 45 % (20-50) 10/23/18 04:20 Monocytes 5 % (2-10) 10/23/18 04:20 Eosinophils 2 % (0-5) 10/23/18 04:20 Basophils 0 % (0-3) 10/23/18 04:20 Platelet Estimate DECREASED PLATELETS (NORMAL) 10/23/18 04:20 Polychromasia 1+ 10/22/18 06:20 Poikilocytosis 1+ 10/23/18 04:20 Anisocytosis 2+ 10/23/18 04:20 Microcytosis 2+ 10/22/18 06:20 Macrocytosis 1+ 10/23/18 04:20 Tear Drop Cells 1+ 10/23/18 04:20 RBC Morph Micro Appear ABNORMAL (NORMAL) 10/23/18 04:20 ESR 127 mm/hr (0-20) H 10/20/18 06:00 PT 10.2 SECONDS (9.5-11.5) 10/24/18 04:25 INR 0.98 (0.5-1.4) 10/24/18 04:25 PTT (Actin FS) 33.6 SECONDS (26.0-38.0) 10/22/18 06:20 Sodium 136 mEq/L (136-145) 10/23/18 04:20 Potassium 3.8 mEq/L (3.5-5.1) 10/23/18 04:20 Chloride 101 mEq/L (98-107) 10/23/18 04:20 Carbon Dioxide 28.4 mEq/L (21.0-31.0) 10/23/18 04:20 Anion Gap 10.4 (7.0-16.0) 10/23/18 04:20 BUN 12 mg/dL (7-25) 10/23/18 04:20 Creatinine 0.7 mg/dL (0.7-1.3) 10/23/18 04:20 Est GFR ( Amer) > 60.0 ml/min (>90) 10/23/18 04:20 Est GFR (Non-Af Amer) > 60.0 ml/min 10/23/18 04:20 BUN/Creatinine Ratio 17.1 10/23/18 04:20 Glucose 105 mg/dL (70-105) 10/23/18 04:20 POC Glucose 106 MG/DL (70 - 105) H 10/19/18 16:15 Whole Bld Lactic Acid 1.90 mmol/L (0.60-1.99) 10/19/18 12:50 Calcium 8.7 mg/dL (8.6-10.3) 10/23/18 04:20 Iron 117 ug/dL (38-169) 10/20/18 05:30 TIBC 211 ug/dL (250-450) L 10/20/18 05:30 Iron Saturation 55 % (15-55) 10/20/18 05:30 Unsaturated IBC 94 ug/dL (111-343) L 10/20/18 05:30 Total Bilirubin 1.3 mg/dL (0.3-1.0) H 10/23/18 04:20 Direct Bilirubin 0.57 mg/dL (0.0-0.2) H 10/20/18 06:00 AST 49 U/L (13-39) H 10/23/18 04:20 ALT 36 U/L (7-52) 10/23/18 04:20 Alkaline Phosphatase 39 U/L (34-104) 10/23/18 04:20 Total Protein 6.6 gm/dL (6.0-8.3) 10/23/18 04:20 Albumin 4.0 gm/dL (4.2-5.5) L 10/23/18 04:20 Globulin 2.6 gm/dL 10/23/18 04:20 Albumin/Globulin Ratio 1.5 (1.0-1.8) 10/23/18 04:20 Vitamin B12 150 pg/mL (232-1245) L 10/20/18 06:00 Folic Acid 9.7 ng/mL (>3.0) 10/20/18 06:00 Urine Source MIDSTREAM 10/19/18 12:25 Urine Color YELLOW 10/19/18 12:25 Urine Clarity HAZY (CLEAR) 10/19/18 12:25 Urine pH 7.0 (4.6 - 8.0) 10/19/18 12:25 Ur Specific [place] <= 1.005 (1.005-1.030) 10/19/18 12:25 Urine Protein TRACE mg/dL (NEGATIVE) 10/19/18 12:25 Urine Glucose (UA) NEGATIVE mg/dL (NEGATIVE) 10/19/18 12:25 Urine Ketones NEGATIVE mg/dL (NEGATIVE) 10/19/18 12:25 Urine Blood NEGATIVE (NEGATIVE) 10/19/18 12:25 Urine Nitrate NEGATIVE (NEGATIVE) 10/19/18 12:25 Urine Bilirubin SMALL (NEGATIVE) H 10/19/18 12:25 Urine Urobilinogen 4.0 E.U./dL (0.2 - 1.0) H 10/19/18 12:25 Ur Leukocyte Esterase NEGATIVE (NEGATIVE) 10/19/18 12:25 Urine RBC 0-2 /hpf (0-5) H 10/19/18 12:25 Urine WBC 0-2 /hpf (0-5) 10/19/18 12:25 Ur Epithelial Cells NONE SEEN /lpf (FEW) 10/19/18 12:25 Urine Bacteria FEW /hpf (NONE SEEN) 10/19/18 12:25 Stool Occult Blood NEGATIVE (NEGATIVE) 10/22/18 19:00 Hepatitis A IgM Ab Negative (Negative) 10/19/18 12:50 Hep Bs Antigen Negative (Negative) 10/19/18 12:50 Hep B Core IgM Ab Negative (Negative) 10/19/18 12:50 Hepatitis C Antibody 0.3 s/co ratio (0.0-0.9) 10/19/18 12:50 HIV 1&2 Antibody Screen Non Reactive (Non Reactive) 10/21/18 05:45 Blood Type O POSITIVE 10/19/18 15:20 Antibody Screen NEGATIVE 10/19/18 15:20 Crossmatch See Detail 10/19/18 15:20 - Physical Exam Vitals and I&O: Vital Signs Temp 98.1 F 10/24/18 16:00 Pulse 86 10/24/18 16:00 Resp 18 10/24/18 16:00 BP 133/62 10/24/18 16:00 Pulse Ox 99 10/24/18 16:00 Intake & Output 10/23/18 10/24/18 10/24/18 18:59 06:59 18:59 Intake Total 1600 2975.395 7054 Balance 1600 5943.480 4846 Weight (lbs) 133.356 kg 133.356 kg 133.356 kg Intake: Intake, IV Amount 1100 302.758 6455 Ciprofloxacin 200mg 100 100 100 Premix PB 200 mg In 100 ml @ 100 mls/hr IV Q12H [facility] Rx#:[id number] D5-0.45NS w/20 mEq KCL 1, 1000 990.708 5239 000 ml @ 125 mls/hr IV . Q8H [facility] Rx#:[id number] Oral 500 500 Other: # Voids 3 4 # Bowel Movements 1 1 Weight Source Bedscale Bedscale Bedscale Active Medications: Current Medications Acetaminophen (Tylenol) 650 mg PO Q4H PRN PRN Reason: Fever > 101 Stop: 12/18/18 17:45 Last Admin: 10/20/18 15:36 Dose: 650 mg Amlodipine Besylate (Norvasc) 10 mg PO DAILY [facility] Stop: 12/19/18 08:59 Last Admin: 10/24/18 11:17 Dose: Not Given Cyanocobalamin (Vitamin B12) 1,000 mcg IM QMONTH [facility] Stop: 12/22/18 09:59 Last Admin: 10/23/18 12:11 Dose: 1,000 mcg Potassium Chloride/Dextrose/Sod Cl (D5-0.45ns W/20 Meq Kcl) 1,000 mls @ 125 mls /hr IV .Q8H [facility] Stop: 12/18/18 16:23 Last Admin: 10/24/18 10:30 Dose: 125 mls/hr Ciprofloxacin (Cipro 200mg Premix Pb) 200 mg in 100 mls @ 100 mls/hr IV Q12H [facility] Stop: 12/19/18 10:29 Last Infusion: 10/24/18 11:30 Dose: Infused Ondansetron HCl (Zofran) 4 mg IV Q6H PRN PRN Reason: Nausea / Vomiting Stop: 12/18/18 16:23 General: Alert, Oriented x3, Cooperative HEENT: Atraumatic, PERRLA, EOMI Neck: Supple Cardiovascular: Normal S1, Normal S2 Lungs: Clear to auscultation Abdomen: Bowel sounds, Soft Assessment/Plan - Assessment Assessment: * 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
--- NOTE | 2018-10-24 22:03 | Internal Medicine Prog Note ---
Internal Medicine Subjective - Subjective Service Date: 10/24/18 Patient seen and examined:: without staff (HE HAD EGD AND BIOPSY.HE FEELS WELL) Patient is:: awake, verbal, in bed, talking Per staff patient has:: no adverse event, eating well, tolerating meds Internal Medicine Objective - Results Result Diagrams: 10/23/18 04:20 10/23/18 04:20 Recent Labs: Laboratory Last Values WBC 2.1 Th/cmm (4.8-10.8) L* 10/23/18 04:20 RBC 2.37 Mil/cmm (4.30-5.70) L 10/23/18 04:20 Hgb 8.3 gm/dL (12-16) L 10/23/18 04:20 Hct 24.1 % (41.0-60) L 10/23/18 04:20 MCV 101.3 fl (80-99) H 10/23/18 04:20 MCH 34.9 pg (26.0-30.0) H 10/23/18 04:20 MCHC Differential 34.4 pg (28.0-36.0) 10/23/18 04:20 RDW 23.2 % (11.5-20.0) H 10/23/18 04:20 Plt Count 81 Th/cmm (150-400) L 10/23/18 04:20 MPV 6.1 fl 10/23/18 04:20 Add Manual Diff YES 10/23/18 04:20 Neutrophils % APPLICATIONS CHEMIST 10/19/18 12:50 Band Neutrophils % 1 % (0-10) 10/23/18 04:20 Lymphocytes % APPLICATIONS CHEMIST 10/19/18 12:50 Monocytes % APPLICATIONS CHEMIST 10/19/18 12:50 Eosinophils % APPLICATIONS CHEMIST 10/19/18 12:50 Basophils % APPLICATIONS CHEMIST 10/19/18 12:50 Neutrophils (Manual) 47 % (40-80) 10/23/18 04:20 Lymphocytes 45 % (20-50) 10/23/18 04:20 Monocytes 5 % (2-10) 10/23/18 04:20 Eosinophils 2 % (0-5) 10/23/18 04:20 Basophils 0 % (0-3) 10/23/18 04:20 Platelet Estimate DECREASED PLATELETS (NORMAL) 10/23/18 04:20 Polychromasia 1+ 10/22/18 06:20 Poikilocytosis 1+ 10/23/18 04:20 Anisocytosis 2+ 10/23/18 04:20 Microcytosis 2+ 10/22/18 06:20 Macrocytosis 1+ 10/23/18 04:20 Tear Drop Cells 1+ 10/23/18 04:20 RBC Morph Micro Appear ABNORMAL (NORMAL) 10/23/18 04:20 ESR 127 mm/hr (0-20) H 10/20/18 06:00 PT 10.2 SECONDS (9.5-11.5) 10/24/18 04:25 INR 0.98 (0.5-1.4) 10/24/18 04:25 PTT (Actin FS) 33.6 SECONDS (26.0-38.0) 10/22/18 06:20 Sodium 136 mEq/L (136-145) 10/23/18 04:20 Potassium 3.8 mEq/L (3.5-5.1) 10/23/18 04:20 Chloride 101 mEq/L (98-107) 10/23/18 04:20 Carbon Dioxide 28.4 mEq/L (21.0-31.0) 10/23/18 04:20 Anion Gap 10.4 (7.0-16.0) 10/23/18 04:20 BUN 12 mg/dL (7-25) 10/23/18 04:20 Creatinine 0.7 mg/dL (0.7-1.3) 10/23/18 04:20 Est GFR ( Amer) > 60.0 ml/min (>90) 10/23/18 04:20 Est GFR (Non-Af Amer) > 60.0 ml/min 10/23/18 04:20 BUN/Creatinine Ratio 17.1 10/23/18 04:20 Glucose 105 mg/dL (70-105) 10/23/18 04:20 POC Glucose 106 MG/DL (70 - 105) H 10/19/18 16:15 Whole Bld Lactic Acid 1.90 mmol/L (0.60-1.99) 10/19/18 12:50 Calcium 8.7 mg/dL (8.6-10.3) 10/23/18 04:20 Iron 117 ug/dL (38-169) 10/20/18 05:30 TIBC 211 ug/dL (250-450) L 10/20/18 05:30 Iron Saturation 55 % (15-55) 10/20/18 05:30 Unsaturated IBC 94 ug/dL (111-343) L 10/20/18 05:30 Total Bilirubin 1.3 mg/dL (0.3-1.0) H 10/23/18 04:20 Direct Bilirubin 0.57 mg/dL (0.0-0.2) H 10/20/18 06:00 AST 49 U/L (13-39) H 10/23/18 04:20 ALT 36 U/L (7-52) 10/23/18 04:20 Alkaline Phosphatase 39 U/L (34-104) 10/23/18 04:20 Total Protein 6.6 gm/dL (6.0-8.3) 10/23/18 04:20 Albumin 4.0 gm/dL (4.2-5.5) L 10/23/18 04:20 Globulin 2.6 gm/dL 10/23/18 04:20 Albumin/Globulin Ratio 1.5 (1.0-1.8) 10/23/18 04:20 Vitamin B12 150 pg/mL (232-1245) L 10/20/18 06:00 Folic Acid 9.7 ng/mL (>3.0) 10/20/18 06:00 Urine Source MIDSTREAM 10/19/18 12:25 Urine Color YELLOW 10/19/18 12:25 Urine Clarity HAZY (CLEAR) 10/19/18 12:25 Urine pH 7.0 (4.6 - 8.0) 10/19/18 12:25 Ur Specific [place] <= 1.005 (1.005-1.030) 10/19/18 12:25 Urine Protein TRACE mg/dL (NEGATIVE) 10/19/18 12:25 Urine Glucose (UA) NEGATIVE mg/dL (NEGATIVE) 10/19/18 12:25 Urine Ketones NEGATIVE mg/dL (NEGATIVE) 10/19/18 12:25 Urine Blood NEGATIVE (NEGATIVE) 10/19/18 12:25 Urine Nitrate NEGATIVE (NEGATIVE) 10/19/18 12:25 Urine Bilirubin SMALL (NEGATIVE) H 10/19/18 12:25 Urine Urobilinogen 4.0 E.U./dL (0.2 - 1.0) H 10/19/18 12:25 Ur Leukocyte Esterase NEGATIVE (NEGATIVE) 10/19/18 12:25 Urine RBC 0-2 /hpf (0-5) H 10/19/18 12:25 Urine WBC 0-2 /hpf (0-5) 10/19/18 12:25 Ur Epithelial Cells NONE SEEN /lpf (FEW) 10/19/18 12:25 Urine Bacteria FEW /hpf (NONE SEEN) 10/19/18 12:25 Stool Occult Blood NEGATIVE (NEGATIVE) 10/22/18 19:00 Hepatitis A IgM Ab Negative (Negative) 10/19/18 12:50 Hep Bs Antigen Negative (Negative) 10/19/18 12:50 Hep B Core IgM Ab Negative (Negative) 10/19/18 12:50 Hepatitis C Antibody 0.3 s/co ratio (0.0-0.9) 10/19/18 12:50 HIV 1&2 Antibody Screen Non Reactive (Non Reactive) 10/21/18 05:45 Blood Type O POSITIVE 10/19/18 15:20 Antibody Screen NEGATIVE 10/19/18 15:20 Crossmatch See Detail 10/19/18 15:20 - Physical Exam Vitals and I&O: Vital Signs Temp 97.2 F 10/24/18 20:00 Pulse 86 10/24/18 20:00 Resp 18 10/24/18 20:00 BP 125/89 10/24/18 20:00 Pulse Ox 99 10/24/18 20:00 Intake & Output 10/24/18 10/24/18 10/25/18 06:59 18:59 06:59 Intake Total 0675.579 9730 Balance 3580.456 2047 Weight (lbs) 133.356 kg 133.356 kg Intake: Intake, IV Amount 250.292 3390 Ciprofloxacin 200mg 100 100 Premix PB 200 mg In 100 ml @ 100 mls/hr IV Q12H [facility] Rx#:[id number] D5-0.45NS w/20 mEq KCL 1, 728.658 2154 000 ml @ 125 mls/hr IV . Q8H [facility] Rx#:[id number] Oral 500 500 Other: # Voids 4 4 # Bowel Movements 1 Weight Source Bedscale Bedscale Active Medications: Current Medications Acetaminophen (Tylenol) 650 mg PO Q4H PRN PRN Reason: Fever > 101 Stop: 08/19/19 17:45 Last Admin: 10/20/18 15:36 Dose: 650 mg Amlodipine Besylate (Norvasc) 10 mg PO DAILY [facility] Stop: 12/19/18 08:59 Last Admin: 10/24/18 11:17 Dose: Not Given Cyanocobalamin (Vitamin B12) 1,000 mcg IM QMONTH [facility] Stop: 12/22/18 09:59 Last Admin: 10/23/18 12:11 Dose: 1,000 mcg Potassium Chloride/Dextrose/Sod Cl (D5-0.45ns W/20 Meq Kcl) 1,000 mls @ 125 mls /hr IV .Q8H [facility] Stop: 12/18/18 16:23 Last Admin: 10/24/18 21:21 Dose: 125 mls/hr Ciprofloxacin (Cipro 200mg Premix Pb) 200 mg in 100 mls @ 100 mls/hr IV Q12H [facility] Stop: 12/19/18 10:29 Last Infusion: 10/24/18 11:30 Dose: Infused Ondansetron HCl (Zofran) 4 mg IV Q6H PRN PRN Reason: Nausea / Vomiting Stop: 12/18/18 16:23 General: alert, obese HEENT: NC/AT, PERRLA, EOMI, anicteric sclerae, throat clear Neck: Supple, No JVD, No thyromegaly, +2 carotid pulse wo bruit, No LAD Lungs: CTAB Cardiovascular: Normal S1, Normal S2, without murmur Abdomen: soft, non-tender, non-distended Extremities: clear Neurological: no change Internal Medicine Assmt/Plan - Assessment Assessment: 1.PANCYTOPENIA. 2.B12 DEFECIENCY. 3.HTN 3.CHOLELITHIASIS. - Plan Plan: continue on current medication and diet.
[2018-10-25 05:18] LABS: MEAN CELL VOLUME 102.3 fl (80-99); MEAN CORPUSCULAR HEMOGLOBIN 34.9 pg (26.0-30.0); MEAN CORPUSCULAR HGB CONC 34.1 pg (28.0-36.0); PLATELET COUNT 71 Th/cmm (150-400); RED BLOOD COUNT 2.21 Mil/cmm (4.30-5.70); RED CELL DISTRIBUTION WIDTH 22.7 % (11.5-20.0)
[2018-10-25 05:45] LABS: WHITE BLOOD COUNT 2.6 Th/cmm (4.8-10.8)
[2018-10-25 05:46] LABS: HEMATOCRIT 22.6 % (41.0-60); HEMOGLOBIN 7.7 gm/dL (12-16)
[2018-10-25] MEDS: D5-0.45NS w/20 mEq KCL 1,000 ML IV SCH (07:36)
[2018-10-25 08:35] LABS: ANISOCYTOSIS 1+; BAND NEUTROPHILE 0 % (0-10); BASOPHIL 0 % (0-3); EOSINOPHIL 3 % (0-5); LYMPHOCYTE 50 % (20-50); MONOCYTE 10 % (2-10); NEUTROPHILS 37 % (40-80); PLATELET ESTIMATE DECREASED PLATELETS (NORMAL)
--- NOTE | 2018-10-25 10:12 | General Progress Note ---
Subjective - Review of Systems Service Date: 10/25/18 Subjective: weak, no vomiting no abd pain dizzy when standing Objective - Results Result Diagrams: 10/25/18 04:50 10/23/18 04:20 Recent Labs: Laboratory Last Values WBC 2.6 Th/cmm (4.8-10.8) L 10/25/18 04:50 RBC 2.21 Mil/cmm (4.30-5.70) L 10/25/18 04:50 Hgb 7.7 gm/dL (12-16) L* 10/25/18 04:50 Hct 22.6 % (41.0-60) L 10/25/18 04:50 MCV 102.3 fl (80-99) H 10/25/18 04:50 MCH 34.9 pg (26.0-30.0) H 10/25/18 04:50 MCHC Differential 34.1 pg (28.0-36.0) 10/25/18 04:50 RDW 22.7 % (11.5-20.0) H 10/25/18 04:50 Plt Count 71 Th/cmm (150-400) L 10/25/18 04:50 MPV 7.6 fl 10/25/18 04:50 Add Manual Diff YES 10/25/18 04:50 Neutrophils % [employer]LLING SUPERVISOR 10/19/18 12:50 Band Neutrophils % 0 % (0-10) 10/25/18 04:50 Lymphocytes % [employer] SUPERVISOR 10/19/18 12:50 Monocytes % [employer]LLING SUPERVISOR 10/19/18 12:50 Eosinophils % [employer] RO[employer] SUPERVISOR 10/19/18 12:50 Basophils % [employer] ROLLING SUPERVISOR 10/19/18 12:50 Neutrophils (Manual) 37 % (40-80) L 10/25/18 04:50 Lymphocytes 50 % (20-50) 10/25/18 04:50 Monocytes 10 % (2-10) 10/25/18 04:50 Eosinophils 3 % (0-5) 10/25/18 04:50 Basophils 0 % (0-3) 10/25/18 04:50 Platelet Estimate DECREASED PLATELETS (NORMAL) 10/25/18 04:50 Polychromasia 1+ 10/22/18 06:20 Poikilocytosis 1+ 10/23/18 04:20 Anisocytosis 1+ 10/25/18 04:50 Microcytosis 2+ 10/22/18 06:20 Macrocytosis 1+ 10/23/18 04:20 Tear Drop Cells 1+ 10/23/18 04:20 RBC Morph Micro Appear ABNORMAL (NORMAL) 10/23/18 04:20 ESR 127 mm/hr (0-20) H 10/20/18 06:00 PT 10.2 SECONDS (9.5-11.5) 10/24/18 04:25 INR 0.98 (0.5-1.4) 10/24/18 04:25 PTT (Actin FS) 33.6 SECONDS (26.0-38.0) 10/22/18 06:20 Sodium 136 mEq/L (136-145) 10/23/18 04:20 Potassium 3.8 mEq/L (3.5-5.1) 10/23/18 04:20 Chloride 101 mEq/L (98-107) 10/23/18 04:20 Carbon Dioxide 28.4 mEq/L (21.0-31.0) 10/23/18 04:20 Anion Gap 10.4 (7.0-16.0) 10/23/18 04:20 BUN 12 mg/dL (7-25) 10/23/18 04:20 Creatinine 0.7 mg/dL (0.7-1.3) 10/23/18 04:20 Est GFR ( Amer) > 60.0 ml/min (>90) 10/23/18 04:20 Est GFR (Non-Af Amer) > 60.0 ml/min 10/23/18 04:20 BUN/Creatinine Ratio 17.1 10/23/18 04:20 Glucose 105 mg/dL (70-105) 10/23/18 04:20 POC Glucose 106 MG/DL (70 - 105) H 10/19/18 16:15 Whole Bld Lactic Acid 1.90 mmol/L (0.60-1.99) 10/19/18 12:50 Calcium 8.7 mg/dL (8.6-10.3) 10/23/18 04:20 Iron 117 ug/dL (38-169) 10/20/18 05:30 TIBC 211 ug/dL (250-450) L 10/20/18 05:30 Iron Saturation 55 % (15-55) 10/20/18 05:30 Unsaturated IBC 94 ug/dL (111-343) L 10/20/18 05:30 Total Bilirubin 1.3 mg/dL (0.3-1.0) H 10/23/18 04:20 Direct Bilirubin 0.57 mg/dL (0.0-0.2) H 10/20/18 06:00 AST 49 U/L (13-39) H 10/23/18 04:20 ALT 36 U/L (7-52) 10/23/18 04:20 Alkaline Phosphatase 39 U/L (34-104) 10/23/18 04:20 Total Protein 6.6 gm/dL (6.0-8.3) 10/23/18 04:20 Albumin 4.0 gm/dL (4.2-5.5) L 10/23/18 04:20 Globulin 2.6 gm/dL 10/23/18 04:20 Albumin/Globulin Ratio 1.5 (1.0-1.8) 10/23/18 04:20 Vitamin B12 150 pg/mL (232-1245) L 10/20/18 06:00 Folic Acid 12.8 ng/mL (>3.0) 10/23/18 04:20 Urine Source MIDSTREAM 10/19/18 12:25 Urine Color YELLOW 10/19/18 12:25 Urine Clarity HAZY (CLEAR) 10/19/18 12:25 Urine pH 7.0 (4.6 - 8.0) 10/19/18 12:25 Ur Specific [place] <= 1.005 (1.005-1.030) 10/19/18 12:25 Urine Protein TRACE mg/dL (NEGATIVE) 10/19/18 12:25 Urine Glucose (UA) NEGATIVE mg/dL (NEGATIVE) 10/19/18 12:25 Urine Ketones NEGATIVE mg/dL (NEGATIVE) 10/19/18 12:25 Urine Blood NEGATIVE (NEGATIVE) 10/19/18 12:25 Urine Nitrate NEGATIVE (NEGATIVE) 10/19/18 12:25 Urine Bilirubin SMALL (NEGATIVE) H 10/19/18 12:25 Urine Urobilinogen 4.0 E.U./dL (0.2 - 1.0) H 10/19/18 12:25 Ur Leukocyte Esterase NEGATIVE (NEGATIVE) 10/19/18 12:25 Urine RBC 0-2 /hpf (0-5) H 10/19/18 12:25 Urine WBC 0-2 /hpf (0-5) 10/19/18 12:25 Ur Epithelial Cells NONE SEEN /lpf (FEW) 10/19/18 12:25 Urine Bacteria FEW /hpf (NONE SEEN) 10/19/18 12:25 Stool Occult Blood NEGATIVE (NEGATIVE) 10/24/18 09:30 Hepatitis A IgM Ab Negative (Negative) 10/19/18 12:50 Hep Bs Antigen Negative (Negative) 10/19/18 12:50 Hep B Core IgM Ab Negative (Negative) 10/19/18 12:50 Hepatitis C Antibody 0.3 s/co ratio (0.0-0.9) 10/19/18 12:50 HIV 1&2 Antibody Screen Non Reactive (Non Reactive) 10/21/18 05:45 Blood Type O POSITIVE 10/19/18 15:20 Antibody Screen NEGATIVE 10/19/18 15:20 Crossmatch See Detail 10/19/18 15:20 - Physical Exam Vitals and I&O: Vital Signs Temp 97.1 F 10/25/18 08:00 Pulse 80 10/25/18 09:22 Resp 18 10/25/18 08:00 BP 137/74 10/25/18 09:22 Pulse Ox 98 10/25/18 08:00 Intake & Output 10/24/18 10/25/18 10/25/18 18:59 06:59 18:59 Intake Total 2600 1000 Output Total 3 Balance 2600 997 Weight (lbs) 133.356 kg 133.356 kg Intake: Intake, IV Amount 2100 1000 Ciprofloxacin 200mg 100 Premix PB 200 mg In 100 ml @ 100 mls/hr IV Q12H [facility] Rx#:[id number] D5-0.45NS w/20 mEq KCL 1, 2000 1000 000 ml @ 125 mls/hr IV . Q8H [facility] Rx#:[id number] Oral 500 Output: Urine 3 Other: # Voids 4 # Bowel Movements 1 0 Weight Source Bedscale Estimated Active Medications: Current Medications Acetaminophen (Tylenol) 650 mg PO Q4H PRN PRN Reason: Fever > 101 Stop: 12/18/18 17:45 Last Admin: 10/20/18 15:36 Dose: 650 mg Amlodipine Besylate (Norvasc) 10 mg PO DAILY [facility] Stop: 12/19/18 08:59 Last Admin: 10/25/18 09:22 Dose: 10 mg Cyanocobalamin (Vitamin B12) 1,000 mcg IM QMONTH [facility] Stop: 12/22/18 09:59 Last Admin: 10/23/18 12:11 Dose: 1,000 mcg Potassium Chloride/Dextrose/Sod Cl (D5-0.45ns W/20 Meq Kcl) 1,000 mls @ 125 mls /hr IV .Q8H [facility] Stop: 12/18/18 16:23 Last Admin: 10/25/18 07:36 Dose: 125 mls/hr Ciprofloxacin (Cipro 200mg Premix Pb) 200 mg in 100 mls @ 100 mls/hr IV Q12H [facility] Stop: 12/19/18 10:29 Last Admin: 10/24/18 22:38 Dose: 100 mls/hr Ondansetron HCl (Zofran) 4 mg IV Q6H PRN PRN Reason: Nausea / Vomiting Stop: 12/18/18 16:23 General: Alert, Oriented x3, Cooperative HEENT: Atraumatic, PERRLA, EOMI Neck: Supple Cardiovascular: Normal S1, Normal S2 Lungs: Clear to auscultation Abdomen: Bowel sounds, Soft - Procedures Procedures: Procedures Procedure Code Date INSPECTION OF UPPER INTESTINAL TRACT, ENDO [id number] 10/19/18 Assessment/Plan - Assessment Assessment: * Pancytopenia sec to Splenic sequestration and Vitamin B12 deficiency Continue B12 supplementation follow pernicious anemia serology not neutropenic, no need for neupogen transfuse one unit PRBC for symptomatic anemia
[2018-10-25] MEDS: Ciprofloxacin 200mg Premix PB 200 MG/100 ML BAG IV SCH (10:30)
--- NOTE | 2018-10-25 13:54 | GI Progress Note ---
Subjective - Review of Systems Service Date: 10/25/18 Events since last encounter: no new events GI OBJECTIVE - Results Result Diagrams: 10/25/18 04:50 10/23/18 04:20 Recent Labs: Laboratory Last Values WBC 2.6 Th/cmm (4.8-10.8) L 10/25/18 04:50 RBC 2.21 Mil/cmm (4.30-5.70) L 10/25/18 04:50 Hgb 7.7 gm/dL (12-16) L* 10/25/18 04:50 Hct 22.6 % (41.0-60) L 10/25/18 04:50 MCV 102.3 fl (80-99) H 10/25/18 04:50 MCH 34.9 pg (26.0-30.0) H 10/25/18 04:50 MCHC Differential 34.1 pg (28.0-36.0) 10/25/18 04:50 RDW 22.7 % (11.5-20.0) H 10/25/18 04:50 Plt Count 71 Th/cmm (150-400) L 10/25/18 04:50 MPV 7.6 fl 10/25/18 04:50 Add Manual Diff YES 10/25/18 04:50 Neutrophils % DIRECTOR OF PATIENT FINANCIAL SERVICES 10/19/18 12:50 Band Neutrophils % 0 % (0-10) 10/25/18 04:50 Lymphocytes % DIRECTOR OF PATIENT FINANCIAL SERVICES 10/19/18 12:50 Monocytes % DIRECTOR OF PATIENT FINANCIAL SERVICES 10/19/18 12:50 Eosinophils % DIRECTOR OF PATIENT FINANCIAL SERVICES 10/19/18 12:50 Basophils % DIRECTOR OF PATIENT FINANCIAL SERVICES 10/19/18 12:50 Neutrophils (Manual) 37 % (40-80) L 10/25/18 04:50 Lymphocytes 50 % (20-50) 10/25/18 04:50 Monocytes 10 % (2-10) 10/25/18 04:50 Eosinophils 3 % (0-5) 10/25/18 04:50 Basophils 0 % (0-3) 10/25/18 04:50 Platelet Estimate DECREASED PLATELETS (NORMAL) 10/25/18 04:50 Polychromasia 1+ 10/22/18 06:20 Poikilocytosis 1+ 10/23/18 04:20 Anisocytosis 1+ 10/25/18 04:50 Microcytosis 2+ 10/22/18 06:20 Macrocytosis 1+ 10/23/18 04:20 Tear Drop Cells 1+ 10/23/18 04:20 RBC Morph Micro Appear ABNORMAL (NORMAL) 10/23/18 04:20 ESR 127 mm/hr (0-20) H 10/20/18 06:00 PT 10.2 SECONDS (9.5-11.5) 10/24/18 04:25 INR 0.98 (0.5-1.4) 10/24/18 04:25 PTT (Actin FS) 33.6 SECONDS (26.0-38.0) 10/22/18 06:20 Sodium 136 mEq/L (136-145) 10/23/18 04:20 Potassium 3.8 mEq/L (3.5-5.1) 10/23/18 04:20 Chloride 101 mEq/L (98-107) 10/23/18 04:20 Carbon Dioxide 28.4 mEq/L (21.0-31.0) 10/23/18 04:20 Anion Gap 10.4 (7.0-16.0) 10/23/18 04:20 BUN 12 mg/dL (7-25) 10/23/18 04:20 Creatinine 0.7 mg/dL (0.7-1.3) 10/23/18 04:20 Est GFR ( Amer) > 60.0 ml/min (>90) 10/23/18 04:20 Est GFR (Non-Af Amer) > 60.0 ml/min 10/23/18 04:20 BUN/Creatinine Ratio 17.1 10/23/18 04:20 Glucose 105 mg/dL (70-105) 10/23/18 04:20 POC Glucose 106 MG/DL (70 - 105) H 10/19/18 16:15 Whole Bld Lactic Acid 1.90 mmol/L (0.60-1.99) 10/19/18 12:50 Calcium 8.7 mg/dL (8.6-10.3) 10/23/18 04:20 Iron 117 ug/dL (38-169) 10/20/18 05:30 TIBC 211 ug/dL (250-450) L 10/20/18 05:30 Iron Saturation 55 % (15-55) 10/20/18 05:30 Unsaturated IBC 94 ug/dL (111-343) L 10/20/18 05:30 Total Bilirubin 1.3 mg/dL (0.3-1.0) H 10/23/18 04:20 Direct Bilirubin 0.57 mg/dL (0.0-0.2) H 10/20/18 06:00 AST 49 U/L (13-39) H 10/23/18 04:20 ALT 36 U/L (7-52) 10/23/18 04:20 Alkaline Phosphatase 39 U/L (34-104) 10/23/18 04:20 Total Protein 6.6 gm/dL (6.0-8.3) 10/23/18 04:20 Albumin 4.0 gm/dL (4.2-5.5) L 10/23/18 04:20 Globulin 2.6 gm/dL 10/23/18 04:20 Albumin/Globulin Ratio 1.5 (1.0-1.8) 10/23/18 04:20 Vitamin B12 150 pg/mL (232-1245) L 10/20/18 06:00 Folic Acid 12.8 ng/mL (>3.0) 10/23/18 04:20 Urine Source MIDSTREAM 10/19/18 12:25 Urine Color YELLOW 10/19/18 12:25 Urine Clarity HAZY (CLEAR) 10/19/18 12:25 Urine pH 7.0 (4.6 - 8.0) 10/19/18 12:25 Ur Specific [place] <= 1.005 (1.005-1.030) 10/19/18 12:25 Urine Protein TRACE mg/dL (NEGATIVE) 10/19/18 12:25 Urine Glucose (UA) NEGATIVE mg/dL (NEGATIVE) 10/19/18 12:25 Urine Ketones NEGATIVE mg/dL (NEGATIVE) 10/19/18 12:25 Urine Blood NEGATIVE (NEGATIVE) 10/19/18 12:25 Urine Nitrate NEGATIVE (NEGATIVE) 10/19/18 12:25 Urine Bilirubin SMALL (NEGATIVE) H 10/19/18 12:25 Urine Urobilinogen 4.0 E.U./dL (0.2 - 1.0) H 10/19/18 12:25 Ur Leukocyte Esterase NEGATIVE (NEGATIVE) 10/19/18 12:25 Urine RBC 0-2 /hpf (0-5) H 10/19/18 12:25 Urine WBC 0-2 /hpf (0-5) 10/19/18 12:25 Ur Epithelial Cells NONE SEEN /lpf (FEW) 10/19/18 12:25 Urine Bacteria FEW /hpf (NONE SEEN) 10/19/18 12:25 Stool Occult Blood NEGATIVE (NEGATIVE) 10/24/18 09:30 Helicobacter pylori Ab NEGATIVE (NEGATIVE) 10/24/18 14:20 Hepatitis A IgM Ab Negative (Negative) 10/19/18 12:50 Hep Bs Antigen Negative (Negative) 10/19/18 12:50 Hep B Core IgM Ab Negative (Negative) 10/19/18 12:50 Hepatitis C Antibody 0.3 s/co ratio (0.0-0.9) 10/19/18 12:50 HIV 1&2 Antibody Screen Non Reactive (Non Reactive) 10/21/18 05:45 Blood Type O POSITIVE 10/25/18 10:30 Antibody Screen NEGATIVE 10/25/18 10:30 Crossmatch See Detail 10/25/18 10:30 - Physical Exam Vitals and I&O: Vital Signs Temp 97 F 10/25/18 13:26 Pulse 87 10/25/18 13:26 Resp 18 10/25/18 13:26 BP 137/83 10/25/18 13:26 Pulse Ox 98 10/25/18 13:26 Intake & Output 10/24/18 10/25/18 10/25/18 18:59 06:59 18:59 Intake Total 2600 1100 100 Output Total 3 Balance 2600 1097 100 Weight (lbs) 133.356 kg 133.356 kg Intake: Intake, IV Amount 2100 1100 100 Ciprofloxacin 200mg 100 100 100 Premix PB 200 mg In 100 ml @ 100 mls/hr IV Q12H [facility] Rx#:[id number] D5-0.45NS w/20 mEq KCL 1, 1999 1000 000 ml @ 125 mls/hr IV . Q8H [facility] Rx#:[id number] Oral 500 Output: Urine 3 Other: # Voids 4 # Bowel Movements 1 0 Weight Source Bedscale Estimated Active Medications: Current Medications Acetaminophen (Tylenol) 650 mg PO Q4H PRN PRN Reason: Fever > 101 Stop: 12/18/18 17:45 Last Admin: 10/20/18 15:36 Dose: 650 mg Amlodipine Besylate (Norvasc) 10 mg PO DAILY [facility] Stop: 12/19/18 08:59 Last Admin: 10/25/18 09:22 Dose: 10 mg Cyanocobalamin (Vitamin B12) 1,000 mcg IM DAILY [facility] Stop: 12/24/18 11:29 Last Admin: 10/25/18 12:33 Dose: 1,000 mcg Folic Acid (Folate) 1 mg PO DAILY [facility] Stop: 12/25/18 08:59 Potassium Chloride/Dextrose/Sod Cl (D5-0.45ns W/20 Meq Kcl) 1,000 mls @ 125 mls /hr IV .Q8H [facility] Stop: 12/18/18 16:23 Last Admin: 10/25/18 07:36 Dose: 125 mls/hr Ciprofloxacin (Cipro 200mg Premix Pb) 200 mg in 100 mls @ 100 mls/hr IV Q12H [facility] Stop: 12/19/18 10:29 Last Infusion: 10/25/18 11:30 Dose: Infused Ondansetron HCl (Zofran) 4 mg IV Q6H PRN PRN Reason: Nausea / Vomiting Stop: 12/18/18 16:23 General: Alert, Oriented x3, Cooperative HEENT: Atraumatic, PERRLA Neck: Supple, Thyromegaly Cardiovascular: Regular rate, Normal S1, Normal S2 Lungs: Clear to auscultation - Procedures Procedures: Procedures Procedure Code Date INSPECTION OF UPPER INTESTINAL TRACT, ENDO [id number] 10/19/18 Assessment/Plan - Assessment Assessment: 1. Pancytopenia 2. Low B12 3. Abdoiminal Pain -Patient has low vitamin B 12 - H pylori negative -Agree with checking IF antibodies -Supportive management -f/u with primary and hematology
--- NOTE | 2018-10-25 15:35 | Infectious Disease Prog Note ---
Infectious Disease Subjective - Review of Systems Service Date: 10/25/18 Subjective: There is no new change, no fever. CT scan suggested distended gall bladder. HIDA scan came positive. US showed cholelithiasis and splenomegaly. VIT B12 is also low. Infectious Disease Objective - Results Result Diagrams: 10/25/18 04:50 10/23/18 04:20 Recent Labs: Laboratory Last Values WBC 2.6 Th/cmm (4.8-10.8) L 10/25/18 04:50 RBC 2.21 Mil/cmm (4.30-5.70) L 10/25/18 04:50 Hgb 7.7 gm/dL (12-16) L* 10/25/18 04:50 Hct 22.6 % (41.0-60) L 10/25/18 04:50 MCV 102.3 fl (80-99) H 10/25/18 04:50 MCH 34.9 pg (26.0-30.0) H 10/25/18 04:50 MCHC Differential 34.1 pg (28.0-36.0) 10/25/18 04:50 RDW 22.7 % (11.5-20.0) H 10/25/18 04:50 Plt Count 71 Th/cmm (150-400) L 10/25/18 04:50 MPV 7.6 fl 10/25/18 04:50 Add Manual Diff YES 10/25/18 04:50 Neutrophils % PROCESS VALIDATION ENGINEER 10/19/18 12:50 Band Neutrophils % 0 % (0-10) 10/25/18 04:50 Lymphocytes % PROCESS VALIDATION ENGINEER 10/19/18 12:50 Monocytes % PROCESS VALIDATION ENGINEER 10/19/18 12:50 Eosinophils % PROCESS VALIDATION ENGINEER 10/19/18 12:50 Basophils % PROCESS VALIDATION ENGINEER 10/19/18 12:50 Neutrophils (Manual) 37 % (40-80) L 10/25/18 04:50 Lymphocytes 50 % (20-50) 10/25/18 04:50 Monocytes 10 % (2-10) 10/25/18 04:50 Eosinophils 3 % (0-5) 10/25/18 04:50 Basophils 0 % (0-3) 10/25/18 04:50 Platelet Estimate DECREASED PLATELETS (NORMAL) 10/25/18 04:50 Polychromasia 1+ 10/22/18 06:20 Poikilocytosis 1+ 10/23/18 04:20 Anisocytosis 1+ 10/25/18 04:50 Microcytosis 2+ 10/22/18 06:20 Macrocytosis 1+ 10/23/18 04:20 Tear Drop Cells 1+ 10/23/18 04:20 RBC Morph Micro Appear ABNORMAL (NORMAL) 10/23/18 04:20 ESR 127 mm/hr (0-20) H 10/20/18 06:00 PT 10.2 SECONDS (9.5-11.5) 10/24/18 04:25 INR 0.98 (0.5-1.4) 10/24/18 04:25 PTT (Actin FS) 33.6 SECONDS (26.0-38.0) 10/22/18 06:20 Sodium 136 mEq/L (136-145) 10/23/18 04:20 Potassium 3.8 mEq/L (3.5-5.1) 10/23/18 04:20 Chloride 101 mEq/L (98-107) 10/23/18 04:20 Carbon Dioxide 28.4 mEq/L (21.0-31.0) 10/23/18 04:20 Anion Gap 10.4 (7.0-16.0) 10/23/18 04:20 BUN 12 mg/dL (7-25) 10/23/18 04:20 Creatinine 0.7 mg/dL (0.7-1.3) 10/23/18 04:20 Est GFR ( Amer) > 60.0 ml/min (>90) 10/23/18 04:20 Est GFR (Non-Af Amer) > 60.0 ml/min 10/23/18 04:20 BUN/Creatinine Ratio 17.1 10/23/18 04:20 Glucose 105 mg/dL (70-105) 10/23/18 04:20 POC Glucose 106 MG/DL (70 - 105) H 10/19/18 16:15 Whole Bld Lactic Acid 1.90 mmol/L (0.60-1.99) 10/19/18 12:50 Calcium 8.7 mg/dL (8.6-10.3) 10/23/18 04:20 Iron 117 ug/dL (38-169) 10/20/18 05:30 TIBC 211 ug/dL (250-450) L 10/20/18 05:30 Iron Saturation 55 % (15-55) 10/20/18 05:30 Unsaturated IBC 94 ug/dL (111-343) L 10/20/18 05:30 Total Bilirubin 1.3 mg/dL (0.3-1.0) H 10/23/18 04:20 Direct Bilirubin 0.57 mg/dL (0.0-0.2) H 10/20/18 06:00 AST 49 U/L (13-39) H 10/23/18 04:20 ALT 36 U/L (7-52) 10/23/18 04:20 Alkaline Phosphatase 39 U/L (34-104) 10/23/18 04:20 Total Protein 6.6 gm/dL (6.0-8.3) 10/23/18 04:20 Albumin 4.0 gm/dL (4.2-5.5) L 10/23/18 04:20 Globulin 2.6 gm/dL 10/23/18 04:20 Albumin/Globulin Ratio 1.5 (1.0-1.8) 10/23/18 04:20 Vitamin B12 150 pg/mL (232-1245) L 10/20/18 06:00 Folic Acid 12.8 ng/mL (>3.0) 10/23/18 04:20 Urine Source MIDSTREAM 10/19/18 12:25 Urine Color YELLOW 10/19/18 12:25 Urine Clarity HAZY (CLEAR) 10/19/18 12:25 Urine pH 7.0 (4.6 - 8.0) 10/19/18 12:25 Ur Specific [place] <= 1.005 (1.005-1.030) 10/19/18 12:25 Urine Protein TRACE mg/dL (NEGATIVE) 10/19/18 12:25 Urine Glucose (UA) NEGATIVE mg/dL (NEGATIVE) 10/19/18 12:25 Urine Ketones NEGATIVE mg/dL (NEGATIVE) 10/19/18 12:25 Urine Blood NEGATIVE (NEGATIVE) 10/19/18 12:25 Urine Nitrate NEGATIVE (NEGATIVE) 10/19/18 12:25 Urine Bilirubin SMALL (NEGATIVE) H 10/19/18 12:25 Urine Urobilinogen 4.0 E.U./dL (0.2 - 1.0) H 10/19/18 12:25 Ur Leukocyte Esterase NEGATIVE (NEGATIVE) 10/19/18 12:25 Urine RBC 0-2 /hpf (0-5) H 10/19/18 12:25 Urine WBC 0-2 /hpf (0-5) 10/19/18 12:25 Ur Epithelial Cells NONE SEEN /lpf (FEW) 10/19/18 12:25 Urine Bacteria FEW /hpf (NONE SEEN) 10/19/18 12:25 Stool Occult Blood NEGATIVE (NEGATIVE) 10/24/18 09:30 Helicobacter pylori Ab NEGATIVE (NEGATIVE) 10/24/18 14:20 Hepatitis A IgM Ab Negative (Negative) 10/19/18 12:50 Hep Bs Antigen Negative (Negative) 10/19/18 12:50 Hep B Core IgM Ab Negative (Negative) 10/19/18 12:50 Hepatitis C Antibody 0.3 s/co ratio (0.0-0.9) 10/19/18 12:50 HIV 1&2 Antibody Screen Non Reactive (Non Reactive) 10/21/18 05:45 Blood Type O POSITIVE 10/25/18 10:30 Antibody Screen NEGATIVE 10/25/18 10:30 Crossmatch See Detail 10/25/18 10:30 - Physical Exam Vitals and I&O: Vital Signs Temp 97 F 10/25/18 13:26 Pulse 87 10/25/18 13:26 Resp 18 10/25/18 14:00 BP 137/83 10/25/18 13:26 Pulse Ox 98 10/25/18 13:26 Intake & Output 10/24/18 10/25/18 10/25/18 18:59 06:59 18:59 Intake Total 2600 1100 100 Output Total 3 Balance 2600 1097 100 Weight (lbs) 133.356 kg 133.356 kg Intake: Intake, IV Amount 2100 1100 100 Ciprofloxacin 200mg 100 100 100 Premix PB 200 mg In 100 ml @ 100 mls/hr IV Q12H [facility] Rx#:[id number] D5-0.45NS w/20 mEq KCL 1, 2000 1000 000 ml @ 125 mls/hr IV . Q8H [facility] Rx#:[id number] Oral 500 Output: Urine 3 Other: # Voids 4 # Bowel Movements 1 0 Weight Source Bedscale Estimated Active Medications: Current Medications Acetaminophen (Tylenol) 650 mg PO Q4H PRN PRN Reason: Fever > 101 Stop: 08/19/19 17:45 Last Admin: 10/20/18 15:36 Dose: 650 mg Amlodipine Besylate (Norvasc) 10 mg PO DAILY [facility] Stop: 12/19/18 08:59 Last Admin: 10/25/18 09:22 Dose: 10 mg Cyanocobalamin (Vitamin B12) 1,000 mcg IM DAILY [facility] Stop: 12/24/18 11:29 Last Admin: 10/25/18 12:33 Dose: 1,000 mcg Folic Acid (Folate) 1 mg PO DAILY [facility] Stop: 12/25/18 08:59 Potassium Chloride/Dextrose/Sod Cl (D5-0.45ns W/20 Meq Kcl) 1,000 mls @ 125 mls /hr IV .Q8H [facility] Stop: 12/18/18 16:23 Last Admin: 10/25/18 07:36 Dose: 125 mls/hr Ciprofloxacin (Cipro 200mg Premix Pb) 200 mg in 100 mls @ 100 mls/hr IV Q12H [facility] Stop: 12/19/18 10:29 Last Infusion: 10/25/18 11:30 Dose: Infused Ondansetron HCl (Zofran) 4 mg IV Q6H PRN PRN Reason: Nausea / Vomiting Stop: 12/18/18 16:23 General: no acute distress, well developed, well nourished HEENT: atraumatic, normocephalic, PERRLA, EOMI, moist mucous membrane Neck: supple, no thyromegaly, no rigid Cardiovascular: S1S2, regular Lungs: clear to auscultation bilaterally, clear to percussion Abdomen: soft, no tender Extremities: no cyanosis, no clubbing, no edema Neurological: awake, alert, oriented Skin: intact - Procedures Procedures: Procedures Procedure Code Date INSPECTION OF UPPER INTESTINAL TRACT, ENDO [id number] 10/19/18 Infectious Disease Assmt/Plan - Assessment Assessment: 1. Pancytopenia. 2. Fever. resolved. 3. Cholelithaisis. asymptomatic. 4. Vitamin B12 deficiency. 5. Hypertension. 6. Obesity and may have sleep apnea. - Plan Plan: dc patient on cipro po for 7 days.
[2018-10-26 06:40] LABS: EPSTEIN BARR AB VCA IGM SEE REF. LAB REPORT; EPSTEIN BARR VCA IGG SEE REF. LAB REPORT
--- NOTE | 2018-10-26 11:21 | Pathology Report ---
[id number] Collection Date: 10/24/2018 Surgeon: Dr. Dot Guerrero Specimen Description: 1. Duodenum biopsy. 2. Gastric biopsy. Gross Description: Part I: Received in formalin are two amos soft tissue fragments ranging from 0.1 to 0.2 cm in greatest dimension. Totally submitted in one cassette labeled A. Gross Description: Part II: Received in formalin are two amos soft tissue fragments ranging from 0.1 to 0.2 cm in greatest dimension. Totally submitted in one cassette labeled B. Microscopic Description: Part I: The histologic sections show duodenal mucosa with intact intestinal villi, showing no evidence for villous abnormality. There is a slight increase in a number of chronic inflammatory cells present consisting of lymphocytes and plasma cells. Diagnosis: Part I: 1. Mild nonspecific chronic inflammation, duodenal biopsy. 2. There is no evidence for celiac disease/sprue. Microscopic Description: Part II: The histologic sections show gastric mucosa with chronic inflammation present consisting of increased numbers of lymphocytes and plasma cells. The Giemsa stain shows no evidence for Helicobacter pylori. Diagnosis: Part II: 1. Chronic gastritis, gastric biopsy. 2. The Giemsa stain is negative for Helicobacter pylori. JOB# [id number]
== END 2018-10-25 17:20 | disposition home or self-care (01) | DRG 241 ==
LOC: ER 12:04 → MSI 15:42 → TELE 15:57
PROVIDERS: ADMIT Family Medicine; ATTEND Family Medicine
PROC: 0D968ZZ Drainage of Stomach, Via Natural or Artificial Opening Endoscopic (ICD-10-PCS; principal; 2018-10-24)
PROC: 0DB68ZX Excision of Stomach, Via Natural or Artificial Opening Endoscopic, Diagnostic (ICD-10-PCS; 2018-10-24)
DX: K29.70 Gastritis, unspecified, without bleeding (principal); D61.818 Other pancytopenia; E87.1 Hypo-osmolality and hyponatremia; Z68.41 Body mass index [BMI] 40.0-44.9, adult; D51.0 Vitamin B12 deficiency anemia due to intrinsic factor deficiency; K80.20 Calculus of gallbladder without cholecystitis without obstruction; D64.9 Anemia, unspecified; E53.0 Riboflavin deficiency; I10 Essential (primary) hypertension; E66.9 Obesity, unspecified; Z79.899 Other long term (current) drug therapy
CPT/HCPCS: 36415-UA; 71045-TC; 76700-TC; 78226-TC; 80053-TC; 80074-90; 81001-TC; 82247-TC; 82248-TC; 82270-TC; 82607-90; 82746-90; 82948-90; 83540-90; 83550-90; 83605; 84145-90; 85007-TC; 85025-TC; 85610-TC; 85652-TC; 86664-90; 86665-90; 86850-TC; 86900-TC; 86901-TC; 86922-TC; 87338-TC; 87389-90; 87799-90; 90784; 90799; 93005; A9537; J0696; J0744; J2405; J2704; J3420; J7030; J7040; P9016; Z7610